=== PATIENT | male | born 1940 | race Caucasian/White ===

== ENCOUNTER 2018-10-27 15:48 | Inpatient (IN) | payer MEDICARE, OTHER, SELFPAY ==
[2018-10-27] VITALS (13 sets, daily range): BP systolic 127–177; BP diastolic 64–95; PULSE 56–67; RESP 15–26; TEMP 36.5–37; O2SAT 93–99; BMI 21.4; BMI 21.9
--- NOTE | 2018-10-27 15:58 | CT_ITS ---
STUDY: CTA OF THE BRAIN REASON FOR EXAM: Male, 78 years old. CVA, stroke alert RADIATION DOSAGE (If Supplied By Facility): CTDIvol = ( 22.91 ) mGy, DLP = ( 670.17 ) mGycm TECHNIQUE: CT angiography was performed with a multi-detector CT scanner. Data acquisition was obtained from the skull base through the vertex following intravenous administration of Isovue 370 100 IV. MIP images were reconstructed from the axial data set. Post-processing of the angiographic images was performed, with multiplanar reformation and 3D reconstruction. Individualized dose optimization techniques were used for this CT. COMPARISON: None. FINDINGS: Normal bilateral petrous carotid arteries. There is calcified plaque formation of the right cavernous carotid artery, without a cross-sectional luminal stenosis. There is calcified plaque formation of the left cavernous carotid artery, without a cross-sectional luminal stenosis. Normal right A1 segments of the anterior cerebral artery. Normal left A1 segments of the anterior cerebral artery. Normal intact anterior communicating artery (ACOM). Normal bilateral A2 segments of the anterior cerebral arteries. Normal right M1 and M2 segments of the middle cerebral arteries, with a normal M1 bifurcation. Normal left M1 and M2 segments of the middle cerebral arteries, with a normal M1 bifurcation. Normal right posterior communicating artery (PCOM). 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 Normal bilateral vertebral arteries. Normal basilar artery with a normal basilar bifurcation. The visualized bilateral superior cerebellar (SCA) arteries are normal. Normal bilateral P1, P2 and visualized P3 segments of the posterior cerebral arteries. There is no demonstrated aneurysm of the [place]. Mucosal thickening of the bilateral maxillary sinuses and ethmoid sinuses noted. There is fluid in the right mastoid air cells. IMPRESSION: 1. Normal [place] without a demonstrated aneurysm or hemodynamically significant stenosis. 2. Chronic maxillary sinusitis. Right mastoiditis. Electronically Signed: Guero Noe MD at 16:42 EDT , Service support , STUDY: CTA NECK WITH CONTRAST REASON FOR EXAM: Male, 78 years old. RADIATION DOSAGE (If Supplied By Facility): CTDIvol = ( 22.91 ) mGy, DLP = ( 670.17 ) mGycm TECHNIQUE: CT angiography with multi-detector data acquisition was performed from the aortic arch to the skull base following intravenous administration of Isovue 370 100 IV. MIP images were reconstructed from the axial data set. Post-processing of the angiographic images was performed, with multiplanar reformation and 3D reconstruction. Degree of stenosis (when present) measured utilizing NASCET criteria. Individualized dose optimization techniques were used for this CT. COMPARISON: None. FINDINGS: Enlarged, suspicious lymph node in the left paratracheal mediastinum is seen on image 1 measuring 2 cm in greatest dimension. There is also irregular thickening of the upper thoracic esophagus with wall thickness measuring up to 1.5 cm. Only the uppermost lungs are identified on this exam with mild degree of subpleural and centrilobular emphysematous changes. AORTIC ARCH: Minimal atherosclerosis at of the thoracic aorta. Minor atherosclerosis at the origins of the brachiocephalic, left common carotid and left subclavian arteries without hemodynamically significant stenosis. RIGHT CAROTID ARTERIES: Normal right common carotid artery (CCA). There is mild atherosclerotic plaque formation with minimal narrowing of the right carotid bulb. Normal origin of the right internal carotid (ICA) artery without a hemodynamically significant stenosis. Normal visualized cervical portion of the right internal carotid artery. Normal origin of the right external carotid artery (ECA). LEFT CAROTID ARTERIES: Normal left common carotid artery (CCA). There is mild atherosclerotic plaque formation with minimal narrowing of the left carotid bulb. Normal origin of the left internal carotid (ICA) artery without a hemodynamically significant stenosis. Normal visualized cervical portion of the left internal carotid artery. Normal origin of the left external carotid artery (ECA). VERTEBRAL ARTERIES: Normal bilateral vertebral arteries. Multilevel degenerative changes throughout the cervical spine with disc space narrowing, endplate sclerosis/spondylosis and facet arthropathy. No critical canal stenosis is seen. No destructive bony lesion is identified. CT/CTA Head W/WO Contrast IMPRESSION: 1. No carotid artery dissection or thrombus. 2. Mild bilateral carotid bulb atherosclerosis without hemodynamically significant stenosis. 3. SUSPICIOUS ADENOPATHY of the mediastinum, incompletely imaged. 4. ESOPHAGEAL WALL THICKENING SUSPICIOUS FOR NEOPLASM. 5. Degenerative changes of the cervical spine. Electronically Signed: Guero Noe MD at 16:46 EDT , Service support ,
--- NOTE | 2018-10-27 15:58 | CT_ITS ---
STUDY: CTA OF THE BRAIN REASON FOR EXAM: Male, 78 years old. CVA, stroke alert RADIATION DOSAGE (If Supplied By Facility): CTDIvol = ( 22.91 ) mGy, DLP = ( 670.17 ) mGycm TECHNIQUE: CT angiography was performed with a multi-detector CT scanner. Data acquisition was obtained from the skull base through the vertex following intravenous administration of Isovue 370 100 IV. MIP images were reconstructed from the axial data set. Post-processing of the angiographic images was performed, with multiplanar reformation and 3D reconstruction. Individualized dose optimization techniques were used for this CT. COMPARISON: None. FINDINGS: Normal bilateral petrous carotid arteries. There is calcified plaque formation of the right cavernous carotid artery, without a cross-sectional luminal stenosis. There is calcified plaque formation of the left cavernous carotid artery, without a cross-sectional luminal stenosis. Normal right A1 segments of the anterior cerebral artery. Normal left A1 segments of the anterior cerebral artery. Normal intact anterior communicating artery (ACOM). Normal bilateral A2 segments of the anterior cerebral arteries. Normal right M1 and M2 segments of the middle cerebral arteries, with a normal M1 bifurcation. Normal left M1 and M2 segments of the middle cerebral arteries, with a normal M1 bifurcation. Normal right posterior communicating artery (PCOM). 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 Normal bilateral vertebral arteries. Normal basilar artery with a normal basilar bifurcation. The visualized bilateral superior cerebellar (SCA) arteries are normal. Normal bilateral P1, P2 and visualized P3 segments of the posterior cerebral arteries. There is no demonstrated aneurysm of the [place]. Mucosal thickening of the bilateral maxillary sinuses and ethmoid sinuses noted. There is fluid in the right mastoid air cells. IMPRESSION: 1. Normal [place] without a demonstrated aneurysm or hemodynamically significant stenosis. 2. Chronic maxillary sinusitis. Right mastoiditis. Electronically Signed: Guero Noe MD at 16:42 EDT , Service support , STUDY: CTA NECK WITH CONTRAST REASON FOR EXAM: Male, 78 years old. RADIATION DOSAGE (If Supplied By Facility): CTDIvol = ( 22.91 ) mGy, DLP = ( 670.17 ) mGycm TECHNIQUE: CT angiography with multi-detector data acquisition was performed from the aortic arch to the skull base following intravenous administration of Isovue 370 100 IV. MIP images were reconstructed from the axial data set. Post-processing of the angiographic images was performed, with multiplanar reformation and 3D reconstruction. Degree of stenosis (when present) measured utilizing NASCET criteria. Individualized dose optimization techniques were used for this CT. COMPARISON: None. FINDINGS: Enlarged, suspicious lymph node in the left paratracheal mediastinum is seen on image 1 measuring 2 cm in greatest dimension. There is also irregular thickening of the upper thoracic esophagus with wall thickness measuring up to 1.5 cm. Only the uppermost lungs are identified on this exam with mild degree of subpleural and centrilobular emphysematous changes. AORTIC ARCH: Minimal atherosclerosis at of the thoracic aorta. Minor atherosclerosis at the origins of the brachiocephalic, left common carotid and left subclavian arteries without hemodynamically significant stenosis. RIGHT CAROTID ARTERIES: Normal right common carotid artery (CCA). There is mild atherosclerotic plaque formation with minimal narrowing of the right carotid bulb. Normal origin of the right internal carotid (ICA) artery without a hemodynamically significant stenosis. Normal visualized cervical portion of the right internal carotid artery. Normal origin of the right external carotid artery (ECA). LEFT CAROTID ARTERIES: Normal left common carotid artery (CCA). There is mild atherosclerotic plaque formation with minimal narrowing of the left carotid bulb. Normal origin of the left internal carotid (ICA) artery without a hemodynamically significant stenosis. Normal visualized cervical portion of the left internal carotid artery. Normal origin of the left external carotid artery (ECA). VERTEBRAL ARTERIES: Normal bilateral vertebral arteries. Multilevel degenerative changes throughout the cervical spine with disc space narrowing, endplate sclerosis/spondylosis and facet arthropathy. No critical canal stenosis is seen. No destructive bony lesion is identified. CT/CTA Neck W/WO Contrast IMPRESSION: 1. No carotid artery dissection or thrombus. 2. Mild bilateral carotid bulb atherosclerosis without hemodynamically significant stenosis. 3. SUSPICIOUS ADENOPATHY of the mediastinum, incompletely imaged. 4. ESOPHAGEAL WALL THICKENING SUSPICIOUS FOR NEOPLASM. 5. Degenerative changes of the cervical spine. Electronically Signed: Guero Noe MD at 16:46 EDT , Service support ,
--- NOTE | 2018-10-27 15:59 | EKG12_ITS ---
Test Reason : NEURO Blood Pressure : / mmHG Vent. Rate : 067 BPM Atrial Rate : 067 BPM P-R Int : 276 ms QRS Dur : 118 ms QT Int : 432 ms P-R-T Axes : 073 018 072 degrees QTc Int : 456 ms Sinus rhythm with 1st degree A-V block Cannot rule out Anteroseptal infarct , age undetermined Abnormal ECG Confirmed by ALLIE ALVARADO, NICHO ([id number]), non linear editor MOMO KUO ([id number]) on 10/29/2018 4:20:37 PM Referred By: Bakari Carbajal Confirmed By:NICHO KELLEY MD
--- NOTE | 2018-10-27 15:59 | CT_ITS ---
STUDY: CT BRAIN WITHOUT CONTRAST REASON FOR EXAM: Male, 78 years old. CVA RADIATION DOSAGE (If Supplied By Facility): CTDIvol = ( 44.99 ) mGy, DLP = ( 796.11 ) mGycm TECHNIQUE: Transaxial CT imaging of the brain was performed without administration of intravenous contrast material. Individualized dose optimization techniques were used for this CT. COMPARISON: None. FINDINGS: Normal soft tissue structures. Normal calvarium. There is mild cerebral atrophy with widening of the extra-axial spaces and ventricular dilatation. There are areas of decreased attenuation within the white matter tracts of the supratentorial brain, consistent with microvascular disease changes. Low density adjacent to the inferior margin of the left basal ganglia may represent a prominent perivascular space versus old lacunar infarction. Doubtful clinical significance. Normal brainstem. Normal cerebellum. There is no intracranial hemorrhage. There are no findings of an acute ischemic infarction. There is atherosclerosis of the carotid siphons. There is mucoperiosteal inflammatory disease of the paranasal sinuses consistent with mild chronic sinusitis. CT/Brain/Head without Contrast IMPRESSION: 1. No acute intracranial hemorrhage or mass effect. 2. Central parenchymal volume loss. White matter changes that are nonspecific but most commonly associated with chronic small vessel ischemic disease. 3. Chronic sinusitis. N.B. : The above information has been verbally conveyed by Guero Noe MD to Gray Lam MD, on 10/27/2018 16:31:44 (ET). Electronically Signed: Guero Noe MD at 16:33 EDT , Service support ,
--- NOTE | 2018-10-27 15:59 | RAD_ITS ---
STUDY: X-RAY CHEST REASON FOR EXAM: Male, 78 years old. Right-sided facial droop that started around 9:00 this morning TECHNIQUE: AP COMPARISON: None. FINDINGS: Rounded mass at the left lung base measures approximately 10 cm with lucency along the superior margin There is no demonstrated pleural abnormality. Normal size heart. Normal mediastinum and sophia. Normal visualized pulmonary arteries. Normal visualized aortic arch and descending thoracic aorta. Normal visualized thoracic spine. Mild degenerative changes of the right shoulder. There is no demonstrated abnormality of the visualized soft tissue structures of the upper abdomen. RAD/Chest 1 View IMPRESSION: Mass density at the left lung base with potential cavitation. Chest CT recommended. Electronically Signed: Guero Noe MD at 16:35 EDT , Service support ,
[2018-10-27 16:08] LABS: Absolute Lymphocyte Count 1.81 X10^3/ul (0.83-4.51); Absolute Neutrophil Count 7.9 X10^3/uL (2.0-7.7); Basophil# 0.01 X10^3/uL; Basophil% 0.1 % (0-1); Eosinophil# 0.05 X10^3/uL; Eosinophils% 0.5 % (0-5); Hematocrit 42.9 % (40-54); Hemoglobin 13.3 g/dl (13.0-16.5); Lymphocyte # 1.81 X10^3/ul (4.0); Lymphocyte % 17.1 % (19-41); Mean Corpuscular Hgb 26.5 pg (27.0-32.0); Mean Corpuscular Volume 85.5 fL (80-94); Mean Platelet Vol. 8.9 fl (6.2-12.0); Monocyte# 0.75 X10^3/uL; Monocyte% 7.1 % (0-10); Neutrophil # 7.94 X10^3/uL (2.7-7.7); Neutrophil % 74.9 % (47-70); Platelet Count 296 K/mm3 (150-450); RBC Distribution Width CV 15.1 % (11.6-14.6); RBC Distribution Width SD 46.8 fl (35.1-43.9); Red Blood Count 5.02 M/mm3 (4.6-6.2); White Blood Count 10.6 K/mm3 (4.4-11.0)
[2018-10-27 16:13] LABS: POSITIVE COUNT NO; POSITIVE DIFFERENTIAL NO; POSITIVE MORPHOLOGY NO
[2018-10-27 16:28] LABS: Anion Gap 6 (5-15); BUN 16 mg/dL (7-18); Calcium,Total 9.8 mg/dL (8.5-10.1); Chloride 99 mmol/L (98-107); Creatinine, Serum 0.84 mg/dL (0.70-1.30); EST Glomerular Filtration Rate 94 mL/min (>60); Est Glom Filt Rate - Afr Amer 114 mL/min (>60); Glucose 126 mg/dL (74-106); Potassium 4.2 mmol/L (3.5-5.1); Sodium Level 135 mmol/L (136-145)
[2018-10-27 16:31] LABS: International Normalized Ratio 1.2; Prothrombin Time (Protime)PT. 14.7 SECONDS (11.7-14.9)
[2018-10-27 16:32] LABS: Partial Thromboplast Time 30.7 Seconds (24.1-36.2)
[2018-10-27] MEDS: 0.9% Normal Saline 1,000 ML 100 ML IV (17:08)
--- NOTE | 2018-10-27 17:08 | ED.VISSUMM ---
- ER Visit Summary Date of Service: 10/27/18 Chief Complaint: [Facial droop] History of Present Illness: The patient is a 78 M [presents the emergency department with noted droop to his right eyelid around 9 AM per . Daughter came over and saw the patient noted that he had a facial droop and was brought to the emergency department for evaluation. states that she only noticed the facial droop about half an hour prior to coming into the emergency department. Patient denies headache. He denies any falls. Patient recently diagnosed with a left lung mass and scheduled to have a CAT scan of his chest. Patient's been having hemoptysis. He denies any fevers. Patient denies any visual changes or difficulty with speech. He thinks may be his right side is a little more weak than the left side. Patient has a history of coronary artery disease, diabetes, hypertension, high cholesterol, diverticulitis.] Physical Examination: [HEENT-PERRLA, EOMI. Cranial nerves II through XII grossly intact. TMs clear. Mucous membranes moist. No adenopathy. Patient has weakness to the right upper eyelid. Cardiovascular-regular rate and rhythm without murmur or ectopy Lungs-clear to auscultation, chest wall stable without crepitus or subcu emphysema Abdomen-normoactive bowel sounds, soft, nontender, no rebound or rigidity, no peritoneal signs. Neuro exam-patient has a right-sided facial droop. Patient is able to slightly wrinkled the right side of the forehead. No focal extremity weakness noted. Finger to nose and heel guerrero testing within normal limits. Negative Romberg. Negative pronator drift. Extremities-intact ?4, normal range of motion, normal pulses, atraumatic] Test Results: [EKG obtained arrival shows sinus rhythm with a ventricular rate 67 bpm with a first-degree AV block. CBC with differential showed a white count 10.6, hemoglobin 13, hematocrit 43, placed 296. Chemistries unremarkable. Troponin was less than 0.015. Chest x-ray showed a left lung mass. CT scan of the brain without contrast was unremarkable. CTA of the brain was normal. CTA of the neck showed questionable thickening of the esophagus cannot rule out neoplasm.] Emergency Department Course and Treatment: [Case was discussed with neurologist who asked that I start patient on prednisone valacyclovir as at this point is unclear patient is having truly stroke versus Castillo's palsy type phenomenon.] Treatment Plan: [Admit] Disposition: [Admit] Impression: [CVA Left lung mass] This note was generated with [employer] dictation software. It may contain incorrect words, spelling, and punctuation that were not noted in review of the chart prior to signing ED Disposition - Plan for ED Patient: Referrals: Donald Cohen MD [Primary Care Provider] -
--- NOTE | 2018-10-27 17:33 | ED.RN ---
NIH CANCELLED PER DR CAPUTO D/T DX OF [facility]
[2018-10-27] MEDS: Acyclovir 800 MG Tablet PO ×2 (17:37→22:31)
[2018-10-27] MEDS: predniSONE 20 MG Tablet 60 MG PO (17:37)
--- NOTE | 2018-10-27 17:47 | PCM.HP.STD ---
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 patient denies any focal weakness of extremities or sensory loss. Denies headache, change in the speech or dysphagia. Patient has chronic cough since 2017. In August he is having hemoptysis and his brought a plastic bag carrying blood-tinged sputum. He is recently diagnosed with a left lung mass. Patient is scheduled for CT scan of chest next week. Denies fever or chills. EKG showed normal sinus rhythm at 67 bpm with first-degree AV block, WV interval 276 ms. Chest x-ray shows left lung mass. CTA head and neck shows mild bilateral carotid bulb atherosclerosis without hemodynamically significant stenosis. CTA neck shows suspicious adenopathy of mediastinum along with esophageal wall thickening suspicious for neoplasm; incompletely imaged. CT brain no acute intracranial hemorrhage or mass-effect. Past Medical History Past Medical History (Chronic Problems): Chronic Problems Hypertension (Chronic) Borderline type 2 diabetes mellitus (Chronic) Dyslipidemia (Chronic) Left lung mass (Chronic) Recent diagnosis Coronary artery disease (Chronic) Allergies lorazepam [From Ativan] Allergy (Verified 10/27/18 15:54) Other CAUSED A HEART ATTACK Penicillins [PCN] Allergy (Verified 10/27/18 15:54) Unknown Home Medications: Ambulatory Orders Medication Instructions Recorded Aspirin 325 mg PO DAILY@0800 10/27/18 Atorvastatin Calcium 40 mg PO QHS 10/27/18 Flaxseed Oil [Flax Oil] 1,000 mg PO DAILY 10/27/18 Metoprolol Tartrate 50 mg PO BID 10/27/18 Sour Baez Extract [Tart Baez 1,000 mg PO QHS 10/27/18 Extract] Turmeric 400 mg PO DAILY 10/27/18 Vitamin B Complex [Balance B-50] 1 each PO DAILY 10/27/18 Smoking Status: Former smoker - *Family History Paternal History Items: Cancer - Patient does not know which cancer, COPD Review of Systems Constitutional: Reports: Weakness, Fatigue. Denies: Chills, Fever, Weight Change HEENT: Reports: Post Nasal Drip, Sinus Congestion. Denies: Head Aches, Sinus Drainage Cardiovascular: Denies: Chest Pain, Palpitations Respiratory: Reports: Cough, Hemoptysis, Shortness of breath upon exertion, Wheezing. Denies: Shortness of breath at rest, Sputum production Gastrointestinal: Denies: Abdominal Pain, Nausea, Vomiting Genitourinary: Denies: Dysuria, Frequency, Hesitancy Musculoskeletal: Denies: Joint Pain, Joint Tenderness Skin: Denies: Rash, Wounds Neurological: Reports: -. Denies: Focal weakness, Numbness, Tingling Psychiatric: Denies: Anxiety, Depression, Homicidal Ideations, Suicidal Ideations Hematologic/ Lymphatic: Denies: Easy Bruising, Easy Bleeding VTE Information - Inpt Only VTE Present on Admission: No VTE Mechan Device Prophylaxis: None VTE Pharm Prophylaxis ordered?: Yes Patient Problems: Active and Suspected Problems Castillo's palsy (Acute) - Physical Exam General: Alert, Oriented x3, Cooperative HEENT: Atraumatic, PERRLA, EOMI, Normocephalic Neck: Supple, No JVD, Negative Carotid Bruits Lungs: Diminished - Air entry severely diminished., Rhonchi Cardiovascular: Regular rate, Regular Rhythm, Normal S1, Normal S2, No murmurs Abdomen: Bowel Sounds Present, Soft, Non Tender, Non-Distended Extremities: No edema, Capillary Refill Less than 3 Seconds Skin: No rashes, No breakdown Musculoskeletal: No Tenderness to Palpation of Joints or Extremities, Arthritic Changes, Muscle Wasting Neurological: Deep Tendon Reflexes 2+/4 and Symmetrical, Motor Exam 5/5 strength throughout, - - Right-sided complete lower motor neuron facial nerve palsy. NIH stroke scale 3 Psych/Mental Status: Normal Affect, Appropriate Vital Signs Temp Pulse Resp BP Pulse Ox 98.6 F 66 15 141/66 H 98 10/27/18 15:51 10/27/18 17:26 10/27/18 17:26 10/27/18 17:26 10/27/18 17:26 Oxygen Flow Rate (L/min) 1 Oxygen Delivery Method Room Air Weight: 153 lb 10.595 oz Body Mass Index (BMI) 21.4 Laboratory Tests Past 24 Hrs 10/27/18 10/27/18 10/27/18 15:55 15:55 15:55 WBC 10.6 RBC 5.02 Hgb 13.3 Hct 42.9 MCV 85.5 MCH 26.5 L MCHC 31.0 L RDW 15.1 H RDW Differential 46.8 H Plt Count 296 MPV 8.9 Immature Gran % (Auto) 0.300 Neut % (Auto) 74.9 H Lymph % (Auto) 17.1 L [place] % (Auto) 7.1 Eos % (Auto) 0.5 Baso % (Auto) 0.1 Absolute Neuts (auto) 7.9 H Absolute Lymphs (auto) 1.81 Total Counted Not Reportable PT 14.7 INR 1.2 APTT 30.7 Sodium 135 L Potassium 4.2 Chloride 99 Carbon Dioxide 30.0 Anion Gap 6 BUN 16 Creatinine 0.84 Estim Creat Clear Calc 72.60 Est GFR (MDRD) Af Amer 114 Est GFR (MDRD) Non-Af 94 BUN/Creatinine Ratio 19.0 Glucose 126 H Calcium 9.8 Troponin I < 0.015 Assessment/Plan All Active Problems Castillo's palsy (Acute) The patient is a 78 year old M with multiple comorbidities as listed above was brought into ER after his noticed right eye drooping at about 9 AM and then right-sided facial droop about 1530 hrs. patient denies any focal weakness of extremities or sensory loss. Denies headache, change in the speech or dysphagia. Patient has chronic cough since 2017. In August he is having hemoptysis and his brought a plastic bag carrying blood-tinged sputum. He is recently diagnosed with a left lung mass. Patient is scheduled for CT scan of chest next week. Denies fever or chills. EKG showed normal sinus rhythm at 67 bpm with first-degree AV block, WV interval 276 ms. Chest x-ray shows left lung mass. CTA head and neck shows mild bilateral carotid bulb atherosclerosis without hemodynamically significant stenosis. CTA neck shows suspicious adenopathy of mediastinum along with esophageal wall thickening suspicious for neoplasm; incompletely imaged. CT brain no acute intracranial hemorrhage or mass-effect. 1. 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 Neurologist is being consulted. Started on acyclovir 800 mg 3 times daily and prednisone 60 mg daily for 3 days and then taper. MRI brain without contrast ordered. PT OT and speech and swallow evaluation ordered. 2. Chronic cough with hemoptysis mostly secondary to COPD/left lung mass: Patient is scheduled for CT scan of chest coming week. Patient has 40 pack years of smoking. Quit about 20 years ago 3. Borderline diabetes mellitus type 2: Glucose is 126. A1c tomorrow a.m. Patient is not on anti-hypoglycemic agent 4. Hypertension and dyslipidemia: Blood pressure is controlled. 5. Coronary artery status post 3 stents: Patient had last echo in 2004 and no major cardiac event as per patient and since then. Home medication reconciliation done. DVT prophylaxis: On Lovenox 40 mg subcu daily. Discontinue if platelet count drops less than 50,000 or hemoglobin less than 8 g% Laboratory Results 10/27/18 15:55: WBC 10.6, RBC 5.02, Hgb 13.3, Hct 42.9, MCV 85.5, MCH 26.5 L, MCHC 31.0 L, RDW 15.1 H, RDW Differential 46.8 H, Plt Count 296, MPV 8.9, Immature Gran % (Auto) 0.300, Neut % (Auto) 74.9 H, Lymph % (Auto) 17.1 L, [place] % (Auto) 7.1, Eos % (Auto) 0.5, Baso % (Auto) 0.1, Absolute Neuts (auto) 7.9 H, Absolute Lymphs (auto) 1.81, Total Counted Not Reportable 10/27/18 15:55: PT 14.7, INR 1.2, APTT 30.7 10/27/18 15:55: Sodium 135 L, Potassium 4.2, Chloride 99, Carbon Dioxide 30.0, Anion Gap 6, BUN 16, Creatinine 0.84, Estim Creat Clear Calc 72.60, Est GFR (MDRD) Af Amer 114, Est GFR (MDRD) Non-Af 94, BUN/Creatinine Ratio 19.0, Glucose 126 H, Calcium 9.8, Troponin I < 0.015 Clinical Impression(s) from Imaging Studies Head CTA 10/27/18 15:58 IMPRESSION: 1. No carotid artery dissection or thrombus. 2. Mild bilateral carotid bulb atherosclerosis without hemodynamically significant stenosis. 3. SUSPICIOUS ADENOPATHY of the mediastinum, incompletely imaged. 4. ESOPHAGEAL WALL THICKENING SUSPICIOUS FOR NEOPLASM. 5. Degenerative changes of the cervical spine. Neck CTA 10/27/18 15:58 IMPRESSION: 1. No carotid artery dissection or thrombus. 2. Mild bilateral carotid bulb atherosclerosis without hemodynamically significant stenosis. 3. SUSPICIOUS ADENOPATHY of the mediastinum, incompletely imaged. 4. ESOPHAGEAL WALL THICKENING SUSPICIOUS FOR NEOPLASM. 5. Degenerative changes of the cervical spine. Brain CT 10/27/18 15:59 IMPRESSION: IMPRESSION: 1. No acute intracranial hemorrhage or mass effect. 2. Central parenchymal volume loss. White matter changes that are nonspecific but most commonly associated with chronic small vessel ischemic disease. 3. Chronic sinusitis. Chest X-Ray 10/27/18 15:59 IMPRESSION: Mass density at the left lung base with potential cavitation. Chest CT recommended. Code Visit OBSV E&M: 28369 Initial observation care L3
[2018-10-27 19:10] LABS: Bedside Glucose 86 mg/dL (70-110)
[2018-10-27] MEDS: Enoxaparin 40 MG/0.4 ML Syringe SC (20:17)
[2018-10-27] MEDS: Atorvastatin Calcium 40 MG Tablet PO (22:31)
[2018-10-27] MEDS: Glucerna Shake 120 ML LIQUID PO (22:31)
[2018-10-27] MEDS: Metoprolol Tartrate 50 MG Tablet PO (22:31)
[2018-10-27 22:51] LABS: Bedside Glucose 182 mg/dL (70-110)
[2018-10-28] VITALS (14 sets, daily range): BP systolic 113–131; BP diastolic 63–68; PULSE 39–70; RESP 12–16; TEMP 36.4–36.9; O2SAT 94–95
[2018-10-28] MEDS: Acyclovir 800 MG Tablet PO ×3 (05:36→20:43)
[2018-10-28 06:56] LABS: Bedside Glucose 111 mg/dL (70-110)
[2018-10-28 07:41] LABS: Anion Gap 8 (5-15); BUN 11 mg/dL (7-18); BUN/Creat Ratio 18.3 RATIO (10-20); Calcium,Total 9.3 mg/dL (8.5-10.1); Chloride 104 mmol/L (98-107); EST Glomerular Filtration Rate 139 mL/min (>60); Est Glom Filt Rate - Afr Amer 168 mL/min (>60); Estimated Creatinine Clearance 57.31 ml/min; Glucose 125 mg/dL (74-106); Potassium 4.1 mmol/L (3.5-5.1); Sodium Level 136 mmol/L (136-145)
[2018-10-28] MEDS: Vitamin B Comp W-C Capsule 1 CAP PO (08:00)
[2018-10-28] MEDS: Enoxaparin 40 MG/0.4 ML Syringe SC (08:00)
[2018-10-28] MEDS: predniSONE 20 MG Tablet 60 MG PO (08:00)
[2018-10-28] MEDS: Aspirin 325 MG Tablet PO (08:00)
[2018-10-28] MEDS: Glucerna Shake 120 ML LIQUID PO ×3 (08:07→17:05)
--- NOTE | 2018-10-28 09:00 | MRI_ITS ---
STUDY: MRI BRAIN WITH AND WITHOUT CONTRAST REASON FOR EXAM: Male, 78 years old. Facial palsy, right facial droop. TECHNIQUE: Standardized multiplanar fat and water weighted pulse sequences were obtained. Dotarem 15 IV was administered for the contrast portion of the examination. COMPARISON: None. FINDINGS: There is moderate cerebral atrophy with widening of the extra-axial spaces and ventricular dilatation. There are a limited number of small white matter hyperintensities, distributed throughout the deep white matter tracts of the cerebral hemispheres, consistent with mild chronic white matter ischemic changes. There is no evidence for recent intracranial ischemia or other cause of cytotoxic edema on diffusion weighted imaging (DWI). Within the right skull base is a diffusion restriction lesion within the right skull base which is partially viewed. Normal bilateral basal ganglia. Normal thalami. There is no extra-axial fluid accumulation. Normal flow voids within the major intracranial circulation suggesting patency by spin echo criteria. Normal venous enhancement. There is no enhancing intra-axial or extra-axial abnormality. Normal sella turcica, pituitary gland, infundibular stalk, optic chiasm and hypothalamus. Normal tectal plate and pineal gland. Normal midbrain, shanice and medulla. Normal cerebellum. Normal basal cisterns. There is demonstrated right mastoid effusion. Within the soft tissues of the right skull base is a lobulated soft tissue lesion inferior to the inferior occipital bone on the right with isointense T1 and T2 signal intensity with noted increased DWI signal consistent with high cellularity. No evidence of definitive osseous destruction. Postcontrast demonstrates mild homogeneous enhancement with apparent infiltration of the skull base musculature as seen on coronal series 11 image 10 extending to the C1-2 attachments. There is question of skull base still mastoid foramen extension on the right also seen on series 11 image 10. Normal bilateral internal auditory canals. No demonstrated orbital abnormality, within the constraints of a routine brain study. Normal visualized paranasal sinuses. Normal calvarium and skull base. Normal visualized soft tissue structures. Normal visualized upper cervical spine. MRI/Brain W/WO Contrast IMPRESSION: 1. Senescent changes with no evidence of acute intracranial bleed, mass or ischemia. 2. Right inferior skull base appeared muscular infiltrating lesion worrisome for underlying sarcoma with metastatic disease not excluded. There is likely infiltration of the right facial nerve and stylomastoid foramen infiltration. Recommend dedicated skull base imaging with thin slice postcontrast SPGR T1 with diffusion imaging for further assessment and analysis. Recommend ENT consultation for definitive tissue assessment. Electronically Signed: Kingsley Penn DO at 16:00 EDT , Service support ,
[2018-10-28] MEDS: Metoprolol Tartrate 50 MG Tablet PO ×2 (10:12→20:43)
[2018-10-28 11:07] LABS: Hemoglobin A1c 6.1 % (4.2-6.3)
--- NOTE | 2018-10-28 11:33 | CON.PCM_ITS ---
Problem List (1) Castillo's palsy Status: Acute Reason for Consult Date of Consultation: 10/28/18 Reason for Consultation: Castillo's palsy History of Present Illness: The patient is a 78 year old M PMH HTN, HLD, DM (per patient he stopped taking the medication as his diabetes was getting under control), CAD S/P stents, H/O hemoptysis for the past 1 month or so, Ex-Tobacco abuse, Ex-ETOH abuse admitted with right facial palsy. Per patient he was with his yesterday 10/27/2018 when at around 9 AM he noticed having right facial droop. History is obtained from the patient, daughter at bedside as well as medical records. He denies any associated focal motor weakness, sensory loss, headache, dizziness, visual disturbances or double vision, speech disturbances. Per patient he used to smoke in the past, was a heavy alcohol drinker for many years in the past, at present drinks about 1-2 beers every day. Chest x-ray done on this admission reported to show mass density at the left lung base with potential cavitation. CT head done on admission did not show anything acute, CTA head/neck reported no hemodynamically significant stenosis occlusion or aneurysm but reported to show suspicious adenopathy of the mediastinum and esophageal wall thickening suspicious for neoplasm. At present patient continues to have right facial droop has difficulty in closing the right eye. Per patient he is on aspirin and Lipitor at baseline. Per patient he lives with his , does drive, does not use any cane or walker to ambulate, denies any frequent falls and does not need any assistance for his ADLs. [] Past Medical History Past Medical History (Chronic Problems): Chronic Problems Hypertension (Chronic) Borderline type 2 diabetes mellitus (Chronic) Dyslipidemia (Chronic) Left lung mass (Chronic) Recent diagnosis Coronary artery disease (Chronic) Allergies lorazepam [From Ativan] Allergy (Verified 10/27/18 15:54) Other CAUSED A HEART ATTACK Penicillins [PCN] Allergy (Verified 10/27/18 15:54) Unknown Home Medications: Ambulatory Orders Medication Instructions Recorded Aspirin 325 mg PO DAILY@0800 10/27/18 Atorvastatin Calcium 40 mg PO QHS 10/27/18 Flaxseed Oil [Flax Oil] 1,000 mg PO DAILY 10/27/18 Metoprolol Tartrate 50 mg PO BID 10/27/18 Sour Baez Extract [Tart Baez 1,000 mg PO QHS 10/27/18 Extract] Turmeric 400 mg PO DAILY 10/27/18 Vitamin B Complex [Balance B-50] 1 each PO DAILY 10/27/18 Lives: Spouse/ Significant Other Smoking Status: Former smoker Tobacco Use: - - Ex-Smoker Alcohol: Heavy - in the past, at present 1-2 beers - *Family History Paternal History Items: Cancer - Patient does not know which cancer, COPD Maternal History Items: No pertinent history Review of Systems Constitutional: Reports: - - Complete ROS negative except as documented in HPI Patient Problems: Active and Suspected Problems Castillo's palsy (Acute) Esophageal mass (Acute) - Physical Exam General: Alert HEENT: Normocephalic Neck: Supple Lungs: Normal air movement, - - decreased left lower lobe Cardiovascular: Normal S1, Normal S2 Abdomen: Bowel Sounds Present Extremities: No cyanosis Neurological: - - consious, alert, AoAx3, CN-right LMN facial palsy, rest normal, weak right orbicularis oculi, orbicularis jose e, and buccinator, power 5/5 both UE/LE, no sensory loss, no cerebellar signs, Reflexes + B/L B/S/T/K/A, plantars B/L flexor, gait deferred, no NR Psych/Mental Status: Normal Affect Vital Signs Temp Pulse Resp BP Pulse Ox 98.0 F 54 L 14 131/65 H 94 10/28/18 09:15 10/28/18 11:00 10/28/18 09:15 10/28/18 09:15 10/28/18 09:15 Oxygen Flow Rate (L/min) 1 Oxygen Delivery Method Room Air Weight: 65.5 kg Body Mass Index (BMI) 21.9 Intake and Output for Last 24 Hours 10/26/18 10/27/18 10/28/18 23:59 23:59 23:59 Intake Total 473 / 473 448 / 448 Output Total 600 / 600 575 / 575 Balance -127 / -127 -127 / -127 Laboratory Tests Past 24 Hrs 10/27/18 10/27/18 10/27/18 15:55 15:55 15:55 WBC 10.6 RBC 5.02 Hgb 13.3 Hct 42.9 MCV 85.5 MCH 26.5 L MCHC 31.0 L RDW 15.1 H RDW Differential 46.8 H Plt Count 296 MPV 8.9 Immature Gran % (Auto) 0.300 Neut % (Auto) 74.9 H Lymph % (Auto) 17.1 L [place] % (Auto) 7.1 Eos % (Auto) 0.5 Baso % (Auto) 0.1 Absolute Neuts (auto) 7.9 H Absolute Lymphs (auto) 1.81 Total Counted Not Reportable PT 14.7 INR 1.2 APTT 30.7 Sodium 135 L Potassium 4.2 Chloride 99 Carbon Dioxide 30.0 Anion Gap 6 BUN 16 Creatinine 0.84 Estim Creat Clear Calc 72.60 Est GFR (MDRD) Af Amer 114 Est GFR (MDRD) Non-Af 94 BUN/Creatinine Ratio 19.0 Glucose 126 H Hemoglobin A1c Calcium 9.8 Troponin I < 0.015 C-React Prot Ext Range 10/27/18 10/28/18 10/28/18 15:55 05:55 05:55 WBC RBC Hgb Hct MCV MCH MCHC RDW RDW Differential Plt Count MPV Immature Gran % (Auto) Neut % (Auto) Lymph % (Auto) [place] % (Auto) Eos % (Auto) Baso % (Auto) Absolute Neuts (auto) Absolute Lymphs (auto) Total Counted PT INR APTT Sodium 136 Potassium 4.1 Chloride 104 Carbon Dioxide 24.0 Anion Gap 8 BUN 11 Creatinine 0.60 L Estim Creat Clear Calc 57.31 Est GFR (MDRD) Af Amer 168 Est GFR (MDRD) Non-Af 139 BUN/Creatinine Ratio 18.3 Glucose 125 H Hemoglobin A1c 6.1 Calcium 9.3 Troponin I C-React Prot Ext Range 116.00 H POC Glucose 10/28/18 10/27/18 10/27/18 06:47 22:23 19:06 POC Glucose 111 H 182 H 86 Assessment/Plan All Active Problems Castillo's palsy (Acute) Esophageal mass (Acute) The patient is a 78 year old M PMH HTN, HLD, DM (per patient he stopped taking the medication as his diabetes was getting under control), CAD S/P stents, H/O hemoptysis for the past 1 month or so, Ex-Tobacco abuse, Ex-ETOH abuse admitted with right facial palsy. Per patient he was with his yesterday 10/27/2018 when at around 9 AM he noticed having right facial droop. History is obtained from the patient, daughter at bedside as well as medical records. He denies any associated focal motor weakness, sensory loss, headache, dizziness, visual disturbances or double vision, speech disturbances. Per patient he used to smoke in the past, was a heavy alcohol drinker for many years in the past, at present drinks about 1-2 beers every day. Chest x-ray done on this admission reported to show mass density at the left lung base with potential cavitation. CT head done on admission did not show anything acute, CTA head/neck reported no hemodynamically significant stenosis occlusion or aneurysm but reported to show suspicious adenopathy of the mediastinum and esophageal wall thickening susp icious for neoplasm. At present patient continues to have right facial droop has difficulty in closing the right eye. Per patient he is on aspirin and Lipitor at baseline. Per patient he lives with his , does drive, does not use any cane or walker to ambulate, denies any frequent falls and does not need any assistance for his ADLs. Impression Likely right-sided Castillo's palsy Plan -Check MRI brain with and without contrast -Check Lyme's antibody, KATHIE level, HIV. -CT head and CTA head/neck did not reported to show any hemodynamically significant stenosis, occlusion or aneurysms but reported to show suspicious adenopathy of the mediastinum and esophageal wall thickening suspicious for neoplasm. Further malignancy workup per hospitalist team and oncology. -Consult oncology -Valacyclovir 1 g p.o. 3 times daily for 7 days -Prednisone 60 mg p.o. once daily for 2 days, then decrease to 50 mg p.o. once daily for 2 days then decrease to 40 mg p.o. once daily for 2 days then decrease to 20 mg p.o. once daily for 2 days then decrease to 10 mg p.o. once daily for 2 days, then decrease to 5 mg p.o. once daily for 2 days and then stop -Right eye patch as needed especially at night to prevent corneal damage and infection. -Artificial tears right eye every 1-2 hours as needed. -Ophthalmology consult as outpatient. -On ASA and Lipitor at baseline. -GI/DVT prophylaxis. -PT/OT -Fall precautions -Further medical management per hospitalist team and wound -Follow-up with neurology as outpatient in 6 weeks -Please call with questions if any -Thank you for allowing us to participate in patient's care and management. Code Visit Inpatient E&M: 29807 Init Hosp L3
[2018-10-28 12:05] LABS: Lyme Ab Screen Interpretation REF LAB
--- NOTE | 2018-10-28 12:59 | PCM.PN.HOSP ---
Patient Problems: Active and Suspected Problems Castillo's palsy (Acute) Subjective: Patient was seen and examined. He denied any weakness in any part of his body or tingling or numbness. No acute events overnight. His daughter was initially at the bedside, came later. Updated on results of the MRI. Agreed to ENT, oncology and pulmonology consult Vitals/I&O's: Vital Signs Temp Pulse Resp BP Pulse Ox 98.0 F 54 L 14 131/65 H 94 10/28/18 09:15 10/28/18 11:00 10/28/18 09:15 10/28/18 09:15 10/28/18 09:15 Oxygen Flow Rate (L/min) 1 Oxygen Delivery Method Room Air Weight: 65.5 kg Body Mass Index (BMI) 21.9 Intake and Output for Last 24 Hours 10/26/18 10/27/18 10/28/18 23:59 23:59 23:59 Intake Total 473 / 473 448 / 448 Output Total 600 / 600 575 / 575 Balance -127 / -127 -127 / -127 General: Alert, Oriented x3, Cooperative, No apparent distress HEENT: Atraumatic, PERRLA, EOMI, Normocephalic Oral: Moist Mucosa Neck: Supple Lungs: Clear to auscultation, Normal air movement Cardiovascular: Regular rate, Regular Rhythm, Normal S1, Normal S2, No murmurs Abdomen: Bowel Sounds Present, Soft, Non Tender, Non-Distended, No Hepato-splenomegaly Extremities: No edema Skin: No rashes, No breakdown Musculoskeletal: No Tenderness to Palpation of Joints or Extremities Lymphatic: No Cervical, Supraclavicular, or Inguinal Adenopathy Neurological: Facial Droop - Right facial droop, LMN Psych/Mental Status: Normal Affect, Appropriate Laboratory Results 10/27/18 15:55: WBC 10.6, RBC 5.02, Hgb 13.3, Hct 42.9, MCV 85.5, MCH 26.5 L, MCHC 31.0 L, RDW 15.1 H, RDW Differential 46.8 H, Plt Count 296, MPV 8.9, Immature Gran % (Auto) 0.300, Neut % (Auto) 74.9 H, Lymph % (Auto) 17.1 L, [place] % (Auto) 7.1, Eos % (Auto) 0.5, Baso % (Auto) 0.1, Absolute Neuts (auto) 7.9 H, Absolute Lymphs (auto) 1.81, Total Counted Not Reportable 10/27/18 15:55: PT 14.7, INR 1.2, APTT 30.7 10/27/18 15:55: Sodium 135 L, Potassium 4.2, Chloride 99, Carbon Dioxide 30.0, Anion Gap 6, BUN 16, Creatinine 0.84, Estim Creat Clear Calc 72.60, Est GFR (MDRD) Af Amer 114, Est GFR (MDRD) Non-Af 94, BUN/Creatinine Ratio 19.0, Glucose 126 H, Calcium 9.8, Troponin I < 0.015 10/27/18 15:55: C-React Prot Ext Range 116.00 H 10/27/18 19:06: POC Glucose 86 10/27/18 22:23: POC Glucose 182 H 10/28/18 05:55: Sodium 136, Potassium 4.1, Chloride 104, Carbon Dioxide 24.0, Anion Gap 8, BUN 11, Creatinine 0.60 L, Estim Creat Clear Calc 57.31, Est GFR (MDRD) Af Amer 168, Est GFR (MDRD) Non-Af 139, BUN/Creatinine Ratio 18.3, Glucose 125 H, Calcium 9.3 10/28/18 05:55: Hemoglobin A1c 6.1 10/28/18 06:47: POC Glucose 111 H 10/28/18 : Angiotensin Convert Enz Pending, Lyme Total Antibody Pending, Lyme Disease Interpret Pending 10/28/18 : HIV 1&2 Antibody Pending Current Medications Acyclovir (Zovirax) 800 mg PO TID [facility] Last Admin: 10/28/18 05:36 Dose: 800 mg Al Hydroxide/Mg Hydroxide (Mylanta Ii) 30 ml PO Q6H PRN PRN PRN Reason: Gastric burning Aspirin (Aspirin) 325 mg PO DAILY@0800 [facility] Last Admin: 10/28/18 08:00 Dose: 325 mg Atorvastatin Calcium (Lipitor) 40 mg PO QHS [facility] Last Admin: 10/27/18 22:31 Dose: 40 mg Enoxaparin Sodium (Lovenox) 40 mg SC DAILY@1000 [facility] Last Admin: 10/28/18 08:00 Dose: 40 mg Metoprolol Tartrate (Lopressor (Beta Geno)) 50 mg PO BID [facility] Last Admin: 10/28/18 10:12 Dose: 50 mg Multivitamins (Allbee W/C Caplet, Thera B Comp/C) [facility] Admin: 10/28/18 08:00 Dose: 1 capsule Nutritional Formula (Lactose Free) (Glucerna Shake) 120 ml PO 4X/DAY [facility] Last Admin: 10/28/18 08:07 Dose: 120 ml Ondansetron HCl (Zofran) 4 mg IV Q8H PRN PRN PRN Reason: NAUSEA Prednisone () [facility] Last Admin: 10/28/18 08:00 Dose: 60 mg Medical Necessity - Tobacco Use Smoking Status: Former smoker Tobacco Use: - - Ex-Smoker Assessment/Plan All Active Problems Castillo's palsy (Acute) 78-year-old male with multiple comorbidities admitted with right sided facial droop. 1. Right-sided facial droop secondary to right facial nerve infiltration at the stylomastoid foramen Likely secondary to malignancy, ENT consulted Acute stroke ruled out from negative MRI brain Discussed with neurology; will continue on prednisone taper, on acyclovir, Will wait for ENT recommendation and possibly discontinue acyclovir if no further events 2. Left lung mass, with hemoptysis, known to the patient, workup in the outpatient is pending, agreed to pulmonology and oncology consult, CT scan of the chest with contrast in a.m., patient likely would need biopsy of the lung mass 3. Prediabetes, HbA1c 6.1, blood sugars are controlled, will discontinue Accu-Cheks 4. Hypertension, on metoprolol 5. CAD status post stents, on aspirin, beta-geno, statin 6. Hyperlipidemia, statin 7. DVT prophylaxis with Lovenox subcu Code Visit Inpatient E&M: 38262 Subs Hosp L2
[2018-10-28 16:56] LABS: Bedside Glucose 141 mg/dL (70-110)
[2018-10-28] MEDS: Atorvastatin Calcium 40 MG Tablet PO (20:42)
--- NOTE | 2018-10-28 20:44 | NURSING ---
Pt requesting meds at this time to try to get some sleep.
[2018-10-29] VITALS (13 sets, daily range): BP systolic 110–161; BP diastolic 63–79; PULSE 51–77; RESP 16–20; TEMP 36.4–37; O2SAT 90–99; BMI 21.9
[2018-10-29] MEDS: Acyclovir 800 MG Tablet PO (05:13)
--- NOTE | 2018-10-29 05:55 | CT_ITS ---
HISTORY: COUGH WITH HEMOPTYSIS,LT LOWR LUNG MASS,MEDIASTINAL ADENOPATHYHX:HTN,HLD,CAD,FORMER SMOKER TECHNIQUE: Helically acquired images were obtained of the chest following IV contrast. A radiation dose optimization technique was used for this scan. IV Contrast dosage and agent: 100 cc [id number]-300 contrast COMPARISON: Chest x-ray 10/27/2018 FINDINGS: The left lower lobe shows a relatively well-circumscribed oval mass which measures approximately 10.4 x 10.3 x 6.5 cm. The mass centrally is partly cavitated. Left lower lobe medially shows a second lesion which is smaller and pleural-based measuring 1.4 x 1.6 x 1 cm. Left lower lobe shows retained secretions/debris within the feeding bronchus. Localized pleural thickening overlying the axillary right fifth rib. Abnormal mural thickening of the upper thoracic esophagus in keeping with tumor extending over an approximate 5 cm length. Adjacent right paraesophageal 1.4 x 1.6 x 1 cm enlarged lymph node. Additional bulky lymph node enlargement involving the AP window, precarinal, and subcarinal regions. Subcarinal lymph nodes measure up to 2.2 cm in the short axis. Thoracic aorta is normal in caliber. No pericardial effusion. Left hepatic lobe shows several oval lesions with peripheral enhancement compatible with metastases with the larger lesion measuring approximately 3.4 x 2.[address]/Chest WITH Contrast IMPRESSION: 1. 5 cm in length suspicious mural lesion of the upper thoracic esophagus. 2. Several left lower lobe lesions measuring approximately 10.4 cm and 1.6 cm respectively, compatible with malignant tumor. 3. 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 4. Probable hepatic metastases. 5. Cholelithiasis. Individualized dose optimization techniques were used for this CT. at 0724 Reported and signed by: Rod Argueta MD Electronically Signed: Rod Argueta, at 7:23 EDT Tel , Service support ,
[2018-10-29 07:36] LABS: Bedside Glucose 78 mg/dL (70-110)
--- NOTE | 2018-10-29 08:02 | PCM.PN.HOSP ---
Patient Problems: Active and Suspected Problems Castillo's palsy (Acute) Esophageal mass (Acute) Subjective: Patient was seen and examined. Denied any new complaints. Still having blood tinged sputum, although color of sputum appears dull than previous. Denied any chest pain or dizziness or shortness of breath. Right facial droop appears improved. Objective: Physical exam: General: Alert, Oriented x3, Cooperative, No apparent distress, comfortable, on room air HEENT: Atraumatic, PERRLA, EOMI, Normocephalic Oral: Moist Mucosa Neck: Supple Lungs: Clear to auscultation, Normal air movement Cardiovascular: Regular rate, Regular Rhythm, Normal S1, Normal S2, No murmurs Abdomen: Bowel Sounds Present, Soft, Non Tender, Non-Distended, No Hepato-splenomegaly Extremities: No edema Skin: No rashes, No breakdown Musculoskeletal: No Tenderness to Palpation of Joints or Extremities Lymphatic: No Cervical, Supraclavicular, or Inguinal Adenopathy Neurological: Facial Droop - Right facial droop, LMN, improved Psych/Mental Status: Normal Affect, Appropriate Vitals/I&O's: Vital Signs Temp Pulse Resp BP Pulse Ox 97.5 F L 53 L 16 138/63 H 99 10/29/18 03:10 10/29/18 07:10 10/29/18 03:10 10/29/18 03:10 10/29/18 03:10 Oxygen Flow Rate (L/min) 1 Oxygen Delivery Method Room Air Weight: 65.5 kg Body Mass Index (BMI) 21.9 Intake and Output for Last 24 Hours 10/27/18 10/28/18 10/29/18 23:59 23:59 23:59 Intake Total 473 / 473 1478 / 1478 100 / 100 Output Total 600 / 600 1135 / 1135 825 / 825 Balance -127 / -127 343 / 343 -725 / -725 Laboratory Results 10/28/18 05:55: Hemoglobin A1c 6.1 10/28/18 16:48: POC Glucose 141 H 10/28/18 : Angiotensin Convert Enz Pending, Lyme Total Antibody Pending, Lyme Disease Interpret Pending 10/28/18 : HIV 1&2 Antibody Pending 10/29/18 06:48: POC Glucose 78 Current Medications Acyclovir (Zovirax) 800 mg PO TID [facility] Last Admin: 10/29/18 05:13 Dose: 800 mg Al Hydroxide/Mg Hydroxide (Mylanta Ii) 30 ml PO Q6H PRN PRN PRN Reason: Gastric burning Aspirin (Aspirin) 325 mg PO DAILY@0800 [facility] Last Admin: 10/28/18 08:00 Dose: 325 mg Atorvastatin Calcium (Lipitor) 40 mg PO QHS [facility] Last Admin: 10/28/18 20:42 Dose: 40 mg Metoprolol Tartrate (Lopressor (Beta Geno)) 50 mg PO BID [facility] Last Admin: 10/28/18 20:43 Dose: 50 mg Multivitamins (Allbee W/C Caplet, Thera B Comp/C) [facility] Last Admin: 10/28/18 08:00 Dose: 1 capsule Nutritional Formula (Lactose Free) (Glucerna Shake) 120 ml PO 4X/DAY [facility] Last Admin: 10/28/18 20:43 Dose: Not Given Ondansetron HCl (Zofran) 4 mg IV Q8H PRN PRN PRN Reason: NAUSEA Prednisone () [facility] Last Admin: 10/28/18 08:00 Dose: 60 mg Medical Necessity - Tobacco Use Smoking Status: Former smoker Tobacco Use: - - Ex-Smoker Assessment/Plan All Active Problems Castillo's palsy (Acute) Esophageal mass (Acute) 78-year-old male with multiple comorbidities, history of nicotine use disorder, [id number], recent weight loss, newly diagnosed lung mass admitted with right sided facial droop. 1. Right-sided facial droop secondary to right facial nerve infiltration at the stylomastoid foramen Etiology is probable upper thoracic esophageal CA, seen on CT of the chest this morning. Acute stroke ruled out from negative MRI brain Patient was on prednisone and acyclovir Appreciate ENT consult, will discontinue acyclovir, continue prednisone taper 2. 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 Hemoptysis secondary to left lung mass, off anticoagulants, on aspirin for history of CAD, Hemoptysis appears to be improving, will continue to monitor. 4. Prediabetes, HbA1c 6.1, blood sugars are controlled, will discontinue Accu-Cheks 5. Hypertension, controlled, on metoprolol 6. CAD status post stents, on aspirin, beta-geno, statin 7. Hyperlipidemia, statin 8. DVT prophylaxis - SCDs Code Visit Inpatient E&M: 79099 Subs Hosp L3
--- NOTE | 2018-10-29 08:06 | PCM.CONS.GEN ---
Problem List (1) Castillo's palsy Status: Acute (2) Left lung mass Status: Chronic Comment: Recent diagnosis (3) Esophageal mass Status: Acute Reason for Consult Date of Consultation: 10/29/18 Reason for Consultation: facial paralysis, skull base mass History of Present Illness: The patient is a 78 year old M who presented to the emergency department for evaluation. He reports that over the last 6 months he suffered approximate 40 pound weight loss with some mild anorexia. He denies significant dysphagia and has been tolerating his usual diet although this is reduced in quantity. Over the last 3 weeks or so he is developed some right-sided neck pain which progressed to right-sided facial weakness prompting his presentation for evaluation. He additionally reports some bloody hemoptysis over the last 3 weeks. A stroke workup with imaging was undertaken and he was found to have a lesion of the right skull base involving the stylomastoid foramen. Additionally imaging showed a large cavitary lesion of the right lower lobe of the lung, mediastinal lymphadenopathy thickening of the upper esophagus with suspicion for tumor mass and multiple solid masses within the liver. He denies any fevers chills or night sweats. He reports that he is usually in his usual state of health until the last several weeks when he started to feel ill with less energy and the onset of his right cervical pain. He reports a history of smoking but quit approximately 14 years ago. He denies significant acid reflux disease. He denies any history of caustic ingestion or esophageal injury. He has some weakness of the right side of the face. His review of systems is otherwise negative on 10 systems review. [] Past Medical History Past Medical History (Chronic Problems): Chronic Problems Hypertension (Chronic) Borderline type 2 diabetes mellitus (Chronic) Dyslipidemia (Chronic) Left lung mass (Chronic) Recent diagnosis Coronary artery disease (Chronic) Allergies lorazepam [From Ativan] Allergy (Verified 10/27/18 15:54) Other CAUSED A HEART ATTACK Penicillins [PCN] Allergy (Verified 10/27/18 15:54) Unknown Home Medications: Ambulatory Orders Medication Instructions Recorded Aspirin 325 mg PO DAILY@0800 10/27/18 Atorvastatin Calcium 40 mg PO QHS 10/27/18 Flaxseed Oil [Flax Oil] 1,000 mg PO DAILY 10/27/18 Metoprolol Tartrate 50 mg PO BID 10/27/18 Sour Baez Extract [Tart Baez 1,000 mg PO QHS 10/27/18 Extract] Turmeric 400 mg PO DAILY 10/27/18 Vitamin B Complex [Balance B-50] 1 each PO DAILY 10/27/18 Lives: Spouse/ Significant Other Smoking Status: Former smoker Tobacco Use: - - Ex-Smoker Alcohol: Heavy - in the past, at present 1-2 beers - *Family History Paternal History Items: Cancer - Patient does not know which cancer, COPD Review of Systems Constitutional: Reports: Anorexia, Malaise, Weight Change. Denies: Chills, Fever, Night Sweats Eyes: Denies: Blurred vision, Cataracts, Conjunctivae Inflammation, Double vision, Eyelid Inflammation HEENT: Denies: Difficulty Hearing, Difficulty Swallowing, Ear Pain, Eye Pain, Nasal bleeding, Sore Throat Cardiovascular: Reports: Heaviness. Denies: Chest Pain, Chest Tightness Respiratory: Reports: Hemoptysis Gastrointestinal: Denies: Abdominal Pain, Constipation, Diarrhea Genitourinary: Denies: Dysuria, Frequency, Hematuria Musculoskeletal: Reports: Neck Pain. Denies: Arm Pain, Back Pain Skin: Denies: Dryness, Jaundice, Lesions Neurological: Denies: Balance problems, Difficulty swallowing Psychiatric: Denies: Anxiety, Depression Hematologic/ Lymphatic: Denies: Adenopathy, Anemia Patient Problems: Active and Suspected Problems Castillo's palsy (Acute) Esophageal mass (Acute) Subjective: Patient report he is feeling well without significant pain although he has had some pain recently of the right side of the neck. He continues to have some right facial weakness. He has a mccabe reports that he is feeling well. He reports that he has been informed that he has been advised that he has a mass in his lung. Objective: The patient is well but thin in appearance. Voicing is normal with mild oral dryness. There is noted to be a grade 2 out of 6 right facial palsy. Palpation of the neck reveals no palpable mass particularly with attention to the right skull base at the site of the reported lesion. - Physical Exam General: Alert, Oriented x3, Cooperative, No apparent distress HEENT: Atraumatic, PERRLA, EOMI Oral: Dry Mucosa Neck: Supple, No Nodes Lungs: No rhonchi, No wheeze Cardiovascular: Regular rate, Regular Rhythm Extremities: No edema Skin: No rashes Lymphatic: - - No palpable cervical adenopathy Neurological: Facial Droop - Right side 2 out of 6, - - Intact laryngeal elevation, intact tongue movement, intact palatal elevation, intact shoulder shrug, intact ocular movements Psych/Mental Status: Alert and oriented to time, place, person, mood and affect Vital Signs Temp Pulse Resp BP Pulse Ox 97.5 F L 53 L 16 138/63 H 99 10/29/18 03:10 10/29/18 07:10 10/29/18 03:10 10/29/18 03:10 10/29/18 03:10 Oxygen Flow Rate (L/min) 1 Oxygen Delivery Method Room Air Weight: 65.5 kg Body Mass Index (BMI) 21.9 Intake and Output for Last 24 Hours 10/27/18 10/28/18 10/29/18 23:59 23:59 23:59 Intake Total 473 / 473 1478 / 1478 100 / 100 Output Total 600 / 600 1135 / 1135 825 / 825 Balance -127 / -127 343 / 343 -725 / -725 Laboratory Tests Past 24 Hrs 10/28/18 10/28/18 10/28/18 05:55 Unknown Unknown Hemoglobin A1c 6.1 Angiotensin Convert Enz Pending Lyme Total Antibody Pending Lyme Disease Interpret Pending HIV 1&2 Antibody Pending POC Glucose 10/29/18 10/28/18 06:48 16:48 POC Glucose 78 141 H Assessment/Plan All Active Problems Castillo's palsy (Acute) Esophageal mass (Acute) Mr. Rojas is a 78-year-old male former smoker with new onset of right facial weakness. I discussed with his admitting physician who reports that the facial droop is much improved today. I have reviewed his CT and MRI findings which show significant mass lesion with suggestion of an esophageal primary site with mediastinal pulmonary and hepatic metastases as well as a lesion of the right skull base inflating the stylomastoid foramen which is the most likely cause of his facial weakness. I have discussed with his PCP that this does not appear to be a viral palsy but rather of tumor metastasis. Although I was consulted for evaluation of the right skull base this is not palpable clinically and as it is not suspected as a primary would not be the most amenable site to biopsy. I would recommend consultation for evaluation and possible biopsy of his esophageal mass as this is the most likely primary site. General surgery and oncology have already been consulted as well as neurology and we will await their input for further treatment planning. I did talk with the patient at the bedside who advised me he was informed of his pulmonary mass. I discussed with him the findings of other lesions with a suspected esophageal primary site and the need for further evaluation and workup. Overall the extensiveness of the disease process would portend a very poor prognosis with treatment options pending the nature of the primary lesion. I would consider speech therapy evaluation for his swallow although he reports no significant symptomatology he is definitely at high risk for aspiration. I will remain available for further assistance should that be necessary although I see no need for immediate intervention on my behalf at this time. I be happy to continue to follow up and provide assistance as needed as his treatment progresses.
[2018-10-29] MEDS: Vitamin B Comp W-C Capsule 1 CAP PO (08:27)
[2018-10-29] MEDS: Aspirin 325 MG Tablet PO (08:27)
[2018-10-29] MEDS: Metoprolol Tartrate 50 MG Tablet PO ×2 (08:28→21:46)
--- NOTE | 2018-10-29 09:10 | PCM.CONS.GEN ---
Problem List (1) Esophageal mass Status: Acute Reason for Consult Date of Consultation: 10/29/18 Reason for Consultation: Esophageal mass History of Present Illness: The patient is a 78 year old M who presented to the ED with newly noted right-sided facial drooping which started at 0900 AM the morning of 10/27. Patient had a stroke work up which consisted of Head/Neck CTA which showed new mediastinal adenopathy and esophageal wall thickening. [place] was normal. 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 Stroke was ruled-out and patient is being treated for Castillo's palsy. Patient also noted he has had hemoptysis for greater than 1 month. He has also noted right-sided neck pain for approximately a couple of weeks. He has had a 40 pound weight loss over a 6 month time period. He notes early satiety and anorexia. He denies chest pain, shortness of breath, reflux or heartburn symptoms. He follows with Dr. Cohen as his PCP, whom he recently was evaluated by last week for a routine check-up. Patient denies previous upper and lower endoscopy. He noted having a colectomy with ostomy creation for a bowel obstruction approximately [address] [facility]. He notes the ostomy was reversed approximately 1 year later. Patient also notes previous myocardial infarction around the time of the bowel obstruction surgery and had 3 cardiac stents placed at that time at [facility] by Dr. Drummond. 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 He is maintained on a daily ASA. He denies other previous abdominal surgeries. He denies change in bowel habits, melena or bright red blood per rectum. He was a smoker and has since quit approximately 14 years ago. He consumes approximately 1-2 beers daily. Past Medical History Past Medical History (Chronic Problems): Chronic Problems Hypertension (Chronic) Borderline type 2 diabetes mellitus (Chronic) Dyslipidemia (Chronic) Left lung mass (Chronic) Recent diagnosis Coronary artery disease (Chronic) Allergies lorazepam [From Ativan] Allergy (Verified 10/27/18 15:54) Other CAUSED A HEART ATTACK Penicillins [PCN] Allergy (Verified 10/27/18 15:54) Unknown Home Medications: Ambulatory Orders Medication Instructions Recorded Aspirin 325 mg PO DAILY@0800 10/27/18 Atorvastatin Calcium 40 mg PO QHS 10/27/18 Flaxseed Oil [Flax Oil] 1,000 mg PO DAILY 10/27/18 Metoprolol Tartrate 50 mg PO BID 10/27/18 Sour Baez Extract [Tart Baez 1,000 mg PO QHS 10/27/18 Extract] Turmeric 400 mg PO DAILY 10/27/18 Vitamin B Complex [Balance B-50] 1 each PO DAILY 10/27/18 Surgical History: - - colectomy with ostomy approximately 25-30 years ago. Ostomy reversal one year later. 3 cardiac stents placed approximately 25-30 years ago. Psychiatric History: No pertinent psych hx Lives: Spouse/ Significant Other Smoking Status: Former smoker Tobacco Use: - - Ex-Smoker Alcohol: Heavy - in the past, at present 1-2 beers - *Family History Paternal History Items: Cancer - Patient does not know which cancer, COPD Maternal History Items: No pertinent history Review of Systems Constitutional: Reports: Anorexia, Weight Change, Fatigue HEENT: Reports: Sinus Congestion, - - Right-sided facial drooping Cardiovascular: Denies: Chest Pain, Palpitations Respiratory: Reports: Cough, Hemoptysis, Shortness of Breath Gastrointestinal: Denies: Abdominal Pain, Nausea, Vomiting Genitourinary: Denies: Dysuria Musculoskeletal: Reports: Neck Pain - Right-sided. Denies: Joint Pain, Joint Tenderness Skin: Denies: Rash, Wounds Neurological: Denies: Numbness, Tingling, Focal weakness Psychiatric: Denies: Anxiety, Depression, Homicidal Ideations, Suicidal Ideations Hematologic/ Lymphatic: Denies: Easy Bruising, Easy Bleeding Patient Problems: Active and Suspected Problems Castillo's palsy (Acute) Esophageal mass (Acute) - Physical Exam General: Alert, Oriented x3, Cooperative HEENT: - - Right facial drooping Neck: Carotid Bruits, Bilateral Lungs: Wheezes Cardiovascular: Regular rate, Murmur Abdomen: Bowel Sounds Present, Soft, Non Tender, - - Nicely healed midline incision Extremities: No edema, Capillary Refill Less than 3 Seconds Skin: No rashes, No breakdown Musculoskeletal: No Tenderness to Palpation of Joints or Extremities Neurological: Facial Droop Psych/Mental Status: Normal Affect, Appropriate Vital Signs Temp Pulse Resp BP Pulse Ox 97.5 F L 76 16 131/74 H 90 10/29/18 03:10 10/29/18 08:28 10/29/18 03:10 10/29/18 08:28 10/29/18 08:00 Oxygen Flow Rate (L/min) 1 Oxygen Delivery Method Room Air Weight: 144 lb 6.444 oz Body Mass Index (BMI) 21.9 Intake and Output for Last 24 Hours 10/27/18 10/28/18 10/29/18 23:59 23:59 23:59 Intake Total 473 / 473 1478 / 1478 100 / 100 Output Total 600 / 600 1135 / 1135 825 / 825 Balance -127 / -127 343 / 343 -725 / -725 Laboratory Tests Past 24 Hrs 10/28/18 10/28/18 10/28/18 05:55 Unknown Unknown Hemoglobin A1c 6.1 Angiotensin Convert Enz Pending Lyme Total Antibody Pending Lyme Disease Interpret Pending HIV 1&2 Antibody Pending POC Glucose 10/29/18 10/28/18 06:48 16:48 POC Glucose 78 141 H Assessment/Plan All Active Problems Castillo's palsy (Acute) Esophageal mass (Acute) I have been consulted in conjunction with Dr. Leo. Impression: Esophageal mass. Notable mass within the lungs, liver and brain concerning for metastasis. Plan: Patient was discussed with Dr. Leo. Dr. Leo will plan to perform an upper endoscopy with biopsies. Procedure details, risks and benefits have been explained to the patient. Patient has had the opportunity to ask and have questions answered. Plan for upper scope tomorrow morning. Thank you for allowing us to participate in this patient's care. Code Visit Office Visits / Consults: [id number] IP Consult L3
--- NOTE | 2018-10-29 09:15 | CON.PCM_ITS ---
Problem List (1) Esophageal mass Status: Acute Reason for Consult Date of Consultation: 10/29/18 Reason for Consultation: Esophageal mass History of Present Illness: The patient is a 78 year old M who presented to the ED with newly noted right- sided facial drooping which started at 0900 AM the morning of 10/27. Patient had a stroke work up which consisted of Head/Neck CTA which showed new mediastinal adenopathy and esophageal wall thickening. [place] was normal. 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 Stroke was ruled-out and patient is being treated for Castillo's palsy. Patient also noted he has had hemoptysis for greater than 1 month. He has also noted right- sided neck pain for approximately a couple of weeks. He has had a 40 pound weight loss over a 6 month time period. He notes early satiety and anorexia. He denies chest pain, shortness of breath, reflux or heartburn symptoms. He follows with Dr. Cohen as his PCP, whom he recently was evaluated by last week for a routine check-up. Patient denies previous upper and lower endoscopy. He noted having a colectomy with ostomy creation for a bowel obstruction approximately 25-[address] [facility]. He notes the ostomy was reversed approximately 1 year later. Patient also notes previous myocardial infarction around the time of the bowel obstruction surgery and had 3 cardiac stents placed at that time at [facility] by Dr. Drummond. 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 He is maintained on a daily ASA. He denies other previous abdominal surgeries. He denies change in bowel habits, melena or bright red blood per rectum. He was a smoker and has since quit approximately 14 years ago. He consumes approximately 1-2 beers daily. Past Medical History Past Medical History (Chronic Problems): Chronic Problems Hypertension (Chronic) Borderline type 2 diabetes mellitus (Chronic) Dyslipidemia (Chronic) Left lung mass (Chronic) Recent diagnosis Coronary artery disease (Chronic) Allergies lorazepam [From Ativan] Allergy (Verified 10/27/18 15:54) Other CAUSED A HEART ATTACK Penicillins [PCN] Allergy (Verified 10/27/18 15:54) Unknown Home Medications: Ambulatory Orders Medication Instructions Recorded Aspirin 325 mg PO DAILY@0800 10/27/18 Atorvastatin Calcium 40 mg PO QHS 10/27/18 Flaxseed Oil [Flax Oil] 1,000 mg PO DAILY 10/27/18 Metoprolol Tartrate 50 mg PO BID 10/27/18 Sour Baez Extract [Tart Baez 1,000 mg PO QHS 10/27/18 Extract] Turmeric 400 mg PO DAILY 10/27/18 Vitamin B Complex [Balance B-50] 1 each PO DAILY 10/27/18 Surgical History: - - colectomy with ostomy approximately 25-30 years ago. Ostomy reversal one year later. 3 cardiac stents placed approximately 25-30 years ago. Psychiatric History: No pertinent psych hx Lives: Spouse/ Significant Other Smoking Status: Former smoker Tobacco Use: - - Ex-Smoker Alcohol: Heavy - in the past, at present 1-2 beers - *Family History Paternal History Items: Cancer - Patient does not know which cancer, COPD Maternal History Items: No pertinent history Review of Systems Constitutional: Reports: Anorexia, Weight Change, Fatigue HEENT: Reports: Sinus Congestion, - - Right-sided facial drooping Cardiovascular: Denies: Chest Pain, Palpitations Respiratory: Reports: Cough, Hemoptysis, Shortness of Breath Gastrointestinal: Denies: Abdominal Pain, Nausea, Vomiting Genitourinary: Denies: Dysuria Musculoskeletal: Reports: Neck Pain - Right-sided. Denies: Joint Pain, Joint Tenderness Skin: Denies: Rash, Wounds Neurological: Denies: Numbness, Tingling, Focal weakness Psychiatric: Denies: Anxiety, Depression, Homicidal Ideations, Suicidal Ideations Hematologic/ Lymphatic: Denies: Easy Bruising, Easy Bleeding Patient Problems: Active and Suspected Problems Castillo's palsy (Acute) Esophageal mass (Acute) - Physical Exam General: Alert, Oriented x3, Cooperative HEENT: - - Right facial drooping Neck: Carotid Bruits, Bilateral Lungs: Wheezes Cardiovascular: Regular rate, Murmur Abdomen: Bowel Sounds Present, Soft, Non Tender, - - Nicely healed midline incision Extremities: No edema, Capillary Refill Less than 3 Seconds Skin: No rashes, No breakdown Musculoskeletal: No Tenderness to Palpation of Joints or Extremities Neurological: Facial Droop Psych/Mental Status: Normal Affect, Appropriate Vital Signs Temp Pulse Resp BP Pulse Ox 97.5 F L 76 16 131/74 H 90 10/29/18 03:10 10/29/18 08:28 10/29/18 03:10 10/29/18 08:28 10/29/18 08:00 Oxygen Flow Rate (L/min) 1 Oxygen Delivery Method Room Air Weight: 144 lb 6.444 oz Body Mass Index (BMI) 21.9 Intake and Output for Last 24 Hours 10/27/18 10/28/18 10/29/18 23:59 23:59 23:59 Intake Total 473 / 473 1478 / 1478 100 / 100 Output Total 600 / 600 1135 / 1135 825 / 825 Balance -127 / -127 343 / 343 -725 / -725 Laboratory Tests Past 24 Hrs 10/28/18 10/28/18 10/28/18 05:55 Unknown Unknown Hemoglobin A1c 6.1 Angiotensin Convert Enz Pending Lyme Total Antibody Pending Lyme Disease Interpret Pending HIV 1&2 Antibody Pending POC Glucose 10/29/18 10/28/18 06:48 16:48 POC Glucose 78 141 H Assessment/Plan All Active Problems Castillo's palsy (Acute) Esophageal mass (Acute) I have been consulted in conjunction with Dr. Leo. Impression: Esophageal mass. Notable mass within the lungs, liver and brain concerning for metastasis. Plan: Patient was discussed with Dr. Leo. Dr. Leo will plan to perform an upper endoscopy with biopsies. Procedure details, risks and benefits have been explained to the patient. Patient has had the opportunity to ask and have questions answered. Plan for upper scope tomorrow morning. Thank you for allowing us to participate in this patient's care. Code Visit Office Visits / Consults: [id number] IP Consult L3
[2018-10-29 09:38] LABS: HIV - WCH Non-Reactive (Nonreactive)
--- NOTE | 2018-10-29 13:15 | PCM.CONS.GEN ---
Problem List (1) Hypertension Status: Chronic Qualifiers: Hypertension type: essential hypertension Qualified Code(s): I10 - Essential (primary) hypertension (2) Borderline type 2 diabetes mellitus Status: Chronic (3) Castillo's palsy Status: Acute (4) Dyslipidemia Status: Chronic (5) Left lung mass Status: Chronic Comment: Recent diagnosis (6) Coronary artery disease Status: Chronic (7) Esophageal mass Status: Acute Reason for Consult Date of Consultation: 10/29/18 - Late entry Reason for Consultation: Lung mass History of Present Illness: The patient is a 78 year old M, with past medical history listed below, who presented to [facility] on 10/27/2018 after being noted to have a right facial droop at approximately 9 AM. Patient denied any focal weakness or sensory loss at that time. Patient reportedly had had a cough since and in August reportedly had coughed up blood-tinged sputum. Patient had a chest x-ray showing a lung mass and a CT scan scheduled for next week. Patient presented for evaluation. In the ER, patient was noted to be in sinus rhythm and a CTA of the head and neck showed significant stenosis with suspicious adenopathy, esophageal wall thickening and left lower lobe mass. Patient was admitted to the floor for further evaluation. Patient does report a remote history of smoking. Patient states that he has had some episodes of dysphagia recently and states it has been going on for a while, but I do not really watch it. Patient does report problems with swallowing chicken recently. Patient continues to have a cough productive of sputum streaked with dark blood. Patient is unclear on when he is ever had chest imaging previously. Patient denies any unintentional weight loss, fever, chills, nausea or vomiting. Patient has not reported coughing up any fetid sputum. Patient denies any chest pain at this time. Patient is not aware of any acute aspiration events. Patient does not use any inhalers at home. Patient is unaware of ever having pulmonary function testing. Patient does report drinking 1-2 beers a day, but states he used to drink much more. Patient denies any history of IV drug use. No exposure to asbestos or TB has been reported. Review of systems otherwise negative x10 systems. Past Medical History Past Medical History (Chronic Problems): Chronic Problems Hypertension (Chronic) Borderline type 2 diabetes mellitus (Chronic) Dyslipidemia (Chronic) Left lung mass (Chronic) Recent diagnosis Coronary artery disease (Chronic) Allergies lorazepam [From Ativan] Allergy (Verified 10/27/18 15:54) Other CAUSED A HEART ATTACK Penicillins [PCN] Allergy (Verified 10/27/18 15:54) Unknown Home Medications: Ambulatory Orders Medication Instructions Recorded Aspirin 325 mg PO DAILY@0800 10/27/18 Atorvastatin Calcium 40 mg PO QHS 10/27/18 Flaxseed Oil [Flax Oil] 1,000 mg PO DAILY 10/27/18 Metoprolol Tartrate 50 mg PO BID 10/27/18 Sour Baez Extract [Tart Baez 1,000 mg PO QHS 10/27/18 Extract] Turmeric 400 mg PO DAILY 10/27/18 Vitamin B Complex [Balance B-50] 1 each PO DAILY 10/27/18 Surgical History: - - colectomy with ostomy approximately 25-30 years ago. Ostomy reversal one year later. 3 cardiac stents placed approximately 25-30 years ago. Psychiatric History: No pertinent psych hx Lives: Spouse/ Significant Other Smoking Status: Former smoker Tobacco Use: - - Ex-Smoker Alcohol: Heavy - in the past, at present 1-2 beers - *Family History Paternal History Items: Cancer - Patient does not know which cancer, COPD Maternal History Items: No pertinent history Review of Systems Comment: See HPI Patient Problems: Active and Suspected Problems Castillo's palsy (Acute) Esophageal mass (Acute) Objective: CT scan of the chest was personally reviewed. This does show thickening of the upper thoracic esophagus, extensive left lower lobe lesions measuring 10.4 and 1.6 cm, prominent mediastinal lymphadenopathy, hepatic masses and cholelithiasis. - Physical Exam General: Alert, Oriented x3, Cooperative, No apparent distress, - - Slight dysarthria without conversational dyspnea. HEENT: Atraumatic, PERRLA, EOMI, - - Erythema of the right eye. Oral: Moist Mucosa, No Gingival or Mucosal Lesions/ Ulcerations Neck: Supple, No JVD, No Nodes, Trachea Midline Lungs: No wheeze, No rales, Diminished - Left base, Rhonchi - Left base, - - Symmetric expansion. Cardiovascular: Regular rate, Regular Rhythm, Normal S1, Normal S2, No murmurs, No rub noted, No Gallop Abdomen: Bowel Sounds Present, Soft, Non Tender, Non-Distended Extremities: No clubbing, No cyanosis, No edema, Capillary Refill Less than 3 Seconds Skin: No rashes, No breakdown Musculoskeletal: No Tenderness to Palpation of Joints or Extremities Lymphatic: Cervical Adenopathy Neurological: - - Right facial droop appreciated. Unable to find appreciable difference in muscle strength of extremities. Sensation appears to be intact. Psych/Mental Status: Normal Affect, Appropriate Vital Signs Temp Pulse Resp BP Pulse Ox 36.7 C 51 L 18 131/74 H 94 10/29/18 09:10 10/29/18 10:42 10/29/18 09:10 10/29/18 09:10 10/29/18 09:10 Oxygen Flow Rate (L/min) 1 Oxygen Delivery Method Room Air Weight: 65.5 kg Body Mass Index (BMI) 21.9 Intake and Output for Last 24 Hours 10/27/18 10/28/18 10/29/18 23:59 23:59 23:59 Intake Total 473 / 473 1478 / 1478 580 / 580 Output Total 600 / 600 1135 / 1135 1050 / 1050 Balance -127 / -127 343 / 343 -470 / -470 Laboratory Tests Past 24 Hrs 10/28/18 Unknown HIV 1&2 Antibody Non-Reactive POC Glucose 10/29/18 10/28/18 06:48 16:48 POC Glucose 78 141 H Clinical Impression(s) from Imaging Studies Head CTA 10/27/18 15:58 IMPRESSION: 1. No carotid artery dissection or thrombus. 2. Mild bilateral carotid bulb atherosclerosis without hemodynamically significant stenosis. 3. SUSPICIOUS ADENOPATHY of the mediastinum, incompletely imaged. 4. ESOPHAGEAL WALL THICKENING SUSPICIOUS FOR NEOPLASM. 5. Degenerative changes of the cervical spine. Electronically Signed: Guero Noe MD at 16:46 EDT , Service support , ADDENDUM: 10/28/18 05 IMPRESSION: Patient is cleared for MRI. Electronically Signed: Richard Smith MD at 5:14 EDT , Service support , ADDENDUM: 10/28/18 05 IMPRESSION: 1. No carotid artery dissection or thrombus. 2. Mild bilateral carotid bulb atherosclerosis without hemodynamically significant stenosis. 3. SUSPICIOUS ADENOPATHY of the mediastinum, incompletely imaged. 4. ESOPHAGEAL WALL THICKENING SUSPICIOUS FOR NEOPLASM. 5. Degenerative changes of the cervical spine. Electronically Signed: Guero Noe MD at 16:46 EDT , Service support , ADDENDUM: 10/28/18 0528 IMPRESSION: Patient is cleared for MRI. Electronically Signed: Richard Smith MD at 5:14 EDT , Service support , Neck CTA 10/27/18 15:58 IMPRESSION: 1. No carotid artery dissection or thrombus. 2. Mild bilateral carotid bulb atherosclerosis without hemodynamically significant stenosis. 3. SUSPICIOUS ADENOPATHY of the mediastinum, incompletely imaged. 4. ESOPHAGEAL WALL THICKENING SUSPICIOUS FOR NEOPLASM. 5. Degenerative changes of the cervical spine. Electronically Signed: Guero Noe MD at 16:46 EDT , Service support , ADDENDUM: 10/28/18 0522 IMPRESSION: Patient is cleared for MRI. Electronically Signed: Richard Smith MD at 5:14 EDT , Service support , Brain CT 10/27/18 15:59 IMPRESSION: 1. No acute intracranial hemorrhage or mass effect. 2. Central parenchymal volume loss. White matter changes that are nonspecific but most commonly associated with chronic small vessel ischemic disease. 3. Chronic sinusitis. N.B. : The above information has been verbally conveyed by Guero Noe MD to Gray Lam MD, on 10/27/2018 16:31:44 (ET). Electronically Signed: Guero Noe MD at 16:33 EDT , Service support , ADDENDUM: 10/27/18 1640 IMPRESSION: 1. No acute intracranial hemorrhage or mass effect. 2. Central parenchymal volume loss. White matter changes that are nonspecific but most commonly associated with chronic small vessel ischemic disease. 3. Chronic sinusitis. N.B. : The above information has been verbally conveyed by Guero Noe MD to Gray Lam MD, on 10/27/2018 16:31:44 (ET). Electronically Signed: Guero Noe MD at 16:33 EDT , Service support , Chest X-Ray 10/27/18 15:59 IMPRESSION: Mass density at the left lung base with potential cavitation. Chest CT recommended. Electronically Signed: Guero Noe MD at 16:35 EDT , Service support , Brain MRI 10/28/18 09:00 IMPRESSION: 1. Senescent changes with no evidence of acute intracranial bleed, mass or ischemia. 2. Right inferior skull base appeared muscular infiltrating lesion worrisome for underlying sarcoma with metastatic disease not excluded. There is likely infiltration of the right facial nerve and stylomastoid foramen infiltration. Recommend dedicated skull base imaging with thin slice postcontrast SPGR T1 with diffusion imaging for further assessment and analysis. Recommend ENT consultation for definitive tissue assessment. Electronically Signed: Kingsley Penn DO at 16:00 EDT , Service support , Chest CT 10/29/18 05:55 IMPRESSION: 1. 5 cm in length suspicious mural lesion of the upper thoracic esophagus. 2. Several left lower lobe lesions measuring approximately 10.4 cm and 1.6 cm respectively, compatible with malignant tumor. 3. 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 4. Probable hepatic metastases. 5. Cholelithiasis. Individualized dose optimization techniques were used for this CT. at 0724 Reported and signed by: Rod Argueta MD Electronically Signed: Rod Argueta, at 7:23 EDT Tel , Service support , Assessment/Plan All Active Problems Castillo's palsy (Acute) Esophageal mass (Acute) RECOMMENDATIONS: 1. Await results of EGD 2. Consider modified diet 3. Initiate empiric antibiotics if patient develops fever or other constitutional symptoms 4. PRN albuterol may be helpful IMPRESSIONS: 1. Lung mass Patient with multiple lesions on CT scan and MRI that appear to be metastatic in nature. Given low likelihood of metastatic lesions to the esophagus, this may indicate a primary. Agree with proceeding with an EGD for now. Multiple lymph nodes and left lower lobe lesion would likely be amenable to endobronchial ultrasound evaluation. Await results of EGD. If negative, bronchoscopy may be indicated. Poor prognosis at this time given multiple sites of metastasis. Given patient's obstruction of the esophagus, modified diet to prevent aspiration should be initiated. Cannot rule out a pulmonary abscess, but patient does not have fever, leukocytosis or fetid sputum reported during this hospitalization. 2. Castillo's palsy/coronary artery disease/hypertension/type 2 diabetes mellitus/advanced age Complicates care, management, recovery and prognosis. Code Visit Inpatient E&M: 46763 Init Hosp L2
--- NOTE | 2018-10-29 13:20 | CON.PCM_ITS ---
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 Patient denied any focal weakness or sensory loss at that time. Patient reportedly had had a cough since and in August reportedly had coughed up blood-tinged sputum. Patient had a chest x-ray showing a lung mass and a CT scan scheduled for next week. Patient presented for evaluation. In the ER, patient was noted to be in sinus rhythm and a CTA of the head and neck showed significant stenosis with suspicious adenopathy, esophageal wall thickening and left lower lobe mass. Patient was admitted to the floor for further evaluation. Patient does report a remote history of smoking. Patient states that he has had some episodes of dysphagia recently and states it has been going on for a while, but I do not really watch it. Patient does report problems with swallowing chicken recently. Patient continues to have a cough productive of sputum streaked with dark blood. Patient is unclear on when he is ever had chest imaging previously. Patient denies any unintentional weight loss, fever, chills, nausea or vomiting. Patient has not reported coughing up any fetid sputum. Patient denies any chest pain at this time. Patient is not aware of any acute aspiration events. Patient does not use any inhalers at home. Patient is unaware of ever having pulmonary function testing. Patient does report drinking 1-2 beers a day, but states he used to drink much more. Patient denies any history of IV drug use. No exposure to asbestos or TB has been reported. Review of systems otherwise negative x10 systems. Past Medical History Past Medical History (Chronic Problems): Chronic Problems Hypertension (Chronic) Borderline type 2 diabetes mellitus (Chronic) Dyslipidemia (Chronic) Left lung mass (Chronic) Recent diagnosis Coronary artery disease (Chronic) Allergies lorazepam [From Ativan] Allergy (Verified 10/27/18 15:54) Other CAUSED A HEART ATTACK Penicillins [PCN] Allergy (Verified 10/27/18 15:54) Unknown Home Medications: Ambulatory Orders Medication Instructions Recorded Aspirin 325 mg PO DAILY@0800 10/27/18 Atorvastatin Calcium 40 mg PO QHS 10/27/18 Flaxseed Oil [Flax Oil] 1,000 mg PO DAILY 10/27/18 Metoprolol Tartrate 50 mg PO BID 10/27/18 Sour Baez Extract [Tart Baez 1,000 mg PO QHS 10/27/18 Extract] Turmeric 400 mg PO DAILY 10/27/18 Vitamin B Complex [Balance B-50] 1 each PO DAILY 10/27/18 Surgical History: - - colectomy with ostomy approximately 25-30 years ago. Ostomy reversal one year later. 3 cardiac stents placed approximately 25-30 years ago. Psychiatric History: No pertinent psych hx Lives: Spouse/ Significant Other Smoking Status: Former smoker Tobacco Use: - - Ex-Smoker Alcohol: Heavy - in the past, at present 1-2 beers - *Family History Paternal History Items: Cancer - Patient does not know which cancer, COPD Maternal History Items: No pertinent history Review of Systems Comment: See HPI Patient Problems: Active and Suspected Problems Castillo's palsy (Acute) Esophageal mass (Acute) Objective: CT scan of the chest was personally reviewed. This does show thickening of the upper thoracic esophagus, extensive left lower lobe lesions measuring 10.4 and 1.6 cm, prominent mediastinal lymphadenopathy, hepatic masses and cholelithiasis. - Physical Exam General: Alert, Oriented x3, Cooperative, No apparent distress, - - Slight dysarthria without conversational dyspnea. HEENT: Atraumatic, PERRLA, EOMI, - - Erythema of the right eye. Oral: Moist Mucosa, No Gingival or Mucosal Lesions/ Ulcerations Neck: Supple, No JVD, No Nodes, Trachea Midline Lungs: No wheeze, No rales, Diminished - Left base, Rhonchi - Left base, - - Symmetric expansion. Cardiovascular: Regular rate, Regular Rhythm, Normal S1, Normal S2, No murmurs, No rub noted, No Gallop Abdomen: Bowel Sounds Present, Soft, Non Tender, Non-Distended Extremities: No clubbing, No cyanosis, No edema, Capillary Refill Less than 3 Seconds Skin: No rashes, No breakdown Musculoskeletal: No Tenderness to Palpation of Joints or Extremities Lymphatic: Cervical Adenopathy Neurological: - - Right facial droop appreciated. Unable to find appreciable difference in muscle strength of extremities. Sensation appears to be intact. Psych/Mental Status: Normal Affect, Appropriate Vital Signs Temp Pulse Resp BP Pulse Ox 36.7 C 51 L 18 131/74 H 94 10/29/18 09:10 10/29/18 10:42 10/29/18 09:10 10/29/18 09:10 10/29/18 09:10 Oxygen Flow Rate (L/min) 1 Oxygen Delivery Method Room Air Weight: 65.5 kg Body Mass Index (BMI) 21.9 Intake and Output for Last 24 Hours 10/27/18 10/28/18 10/29/18 23:59 23:59 23:59 Intake Total 473 / 473 1478 / 1478 580 / 580 Output Total 600 / 600 1135 / 1135 1050 / 1050 Balance -127 / -127 343 / 343 -470 / -470 Laboratory Tests Past 24 Hrs 10/28/18 Unknown HIV 1&2 Antibody Non-Reactive POC Glucose 10/29/18 10/28/18 06:48 16:48 POC Glucose 78 141 H Clinical Impression(s) from Imaging Studies Head CTA 10/27/18 15:58 IMPRESSION: 1. No carotid artery dissection or thrombus. 2. Mild bilateral carotid bulb atherosclerosis without hemodynamically significant stenosis. 3. SUSPICIOUS ADENOPATHY of the mediastinum, incompletely imaged. 4. ESOPHAGEAL WALL THICKENING SUSPICIOUS FOR NEOPLASM. 5. Degenerative changes of the cervical spine. Electronically Signed: Guero Noe MD at 16:46 EDT , Service support , ADDENDUM: 10/28/18 05 IMPRESSION: Patient is cleared for MRI. Electronically Signed: Richard Smith MD at 5:14 EDT , Service support , ADDENDUM: 10/28/18 05 IMPRESSION: 1. No carotid artery dissection or thrombus. 2. Mild bilateral carotid bulb atherosclerosis without hemodynamically significant stenosis. 3. SUSPICIOUS ADENOPATHY of the mediastinum, incompletely imaged. 4. ESOPHAGEAL WALL THICKENING SUSPICIOUS FOR NEOPLASM. 5. Degenerative changes of the cervical spine. Electronically Signed: Guero Noe MD at 16:46 EDT , Service support , ADDENDUM: 10/28/18 0528 IMPRESSION: Patient is cleared for MRI. Electronically Signed: Richard Smith MD at 5:14 EDT , Service support , Neck CTA 10/27/18 15:58 IMPRESSION: 1. No carotid artery dissection or thrombus. 2. Mild bilateral carotid bulb atherosclerosis without hemodynamically significant stenosis. 3. SUSPICIOUS ADENOPATHY of the mediastinum, incompletely imaged. 4. ESOPHAGEAL WALL THICKENING SUSPICIOUS FOR NEOPLASM. 5. Degenerative changes of the cervical spine. Electronically Signed: Guero Noe MD at 16:46 EDT , Service support , ADDENDUM: 10/28/18 0522 IMPRESSION: Patient is cleared for MRI. Electronically Signed: Richard Smith MD at 5:14 EDT , Service support , Brain CT 10/27/18 15:59 IMPRESSION: 1. No acute intracranial hemorrhage or mass effect. 2. Central parenchymal volume loss. White matter changes that are nonspecific but most commonly associated with chronic small vessel ischemic disease. 3. Chronic sinusitis. N.B. : The above information has been verbally conveyed by Guero Noe MD to Gray Lam MD, on 10/27/2018 16:31:44 (ET). Electronically Signed: Guero Noe MD at 16:33 EDT , Service support , ADDENDUM: 10/27/18 1640 IMPRESSION: 1. No acute intracranial hemorrhage or mass effect. 2. Central parenchymal volume loss. White matter changes that are nonspecific but most commonly associated with chronic small vessel ischemic disease. 3. Chronic sinusitis. N.B. : The above information has been verbally conveyed by Guero Noe MD to Gray Lam MD, on 10/27/2018 16:31:44 (ET). Electronically Signed: Guero Noe MD at 16:33 EDT , Service support , Chest X-Ray 10/27/18 15:59 IMPRESSION: Mass density at the left lung base with potential cavitation. Chest CT recommended. Electronically Signed: Guero Noe MD at 16:35 EDT , Service support , Brain MRI 10/28/18 09:00 IMPRESSION: 1. Senescent changes with no evidence of acute intracranial bleed, mass or ischemia. 2. Right inferior skull base appeared muscular infiltrating lesion worrisome for underlying sarcoma with metastatic disease not excluded. There is likely infiltration of the right facial nerve and stylomastoid foramen infiltration. Recommend dedicated skull base imaging with thin slice postcontrast SPGR T1 with diffusion imaging for further assessment and analysis. Recommend ENT consultation for definitive tissue assessment. Electronically Signed: Kingsley Penn DO at 16:00 EDT , Service support , Chest CT 10/29/18 05:55 IMPRESSION: 1. 5 cm in length suspicious mural lesion of the upper thoracic esophagus. 2. Several left lower lobe lesions measuring approximately 10.4 cm and 1.6 cm respectively, compatible with malignant tumor. 3. 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 4. Probable hepatic metastases. 5. Cholelithiasis. Individualized dose optimization techniques were used for this CT. at 0724 Reported and signed by: Rod Argueta MD Electronically Signed: Rod Argueta, at 7:23 EDT Tel , Service support , Assessment/Plan All Active Problems Castillo's palsy (Acute) Esophageal mass (Acute) RECOMMENDATIONS: 1. Await results of EGD 2. Consider modified diet 3. Initiate empiric antibiotics if patient develops fever or other constitutional symptoms 4. PRN albuterol may be helpful IMPRESSIONS: 1. Lung mass Patient with multiple lesions on CT scan and MRI that appear to be metastatic in nature. Given low likelihood of metastatic lesions to the esophagus, this may indicate a primary. Agree with proceeding with an EGD for now. Multiple lymph nodes and left lower lobe lesion would likely be amenable to endobronchial ultrasound evaluation. Await results of EGD. If negative, bronchoscopy may be indicated. Poor prognosis at this time given multiple sites of metastasis. Given patient's obstruction of the esophagus, modified diet to prevent aspiration should be initiated. Cannot rule out a pulmonary abscess, but patient does not have fever, leukocytosis or fetid sputum reported during this hospitalization. 2. Castillo's palsy/coronary artery disease/hypertension/type 2 diabetes mellitus/advanced age Complicates care, management, recovery and prognosis. Code Visit Inpatient E&M: 78590 Init Hosp L2
--- NOTE | 2018-10-29 13:30 | CASEMGMT ---
RN BC Face to Face with patient for initial transition planning/care coordination assessment. RN CM introduced self and role at [facility]. Patient lying in bed, alert and oriented, at bedside. Patient willing to participate in assessment and is able to answer all questions appropriately. Care providers, pharmacy, and demographics verified. Patient wishes to discharge home, denies need for home health at this time. Patient states he has no further needs or concerns at this time. CM to follow for discharge planning needs that may arise. PCP: Donald Cohen Specialists: none Preferred Pharmacy: [facility] [place] [employer] Prescription Benefit: Yes, [employer] Living Will/HPOA: yes, Katie Rojas LNOK: Living Arrangements: Patient lives with in 2 story house with 1st floor setup. Patient is independent at home. 2 steps with railing to enter the home. Transportation: self/ DME/HHC: Patient states he has access to shower chair, raised toilet seat, and walker if needed. Denies home oxygen, nebulizer, bipap, or cpap. Denies previous HHC or SNF Disposition Plan: Patient to discharge home with family support and follow-up plans in place. Alyssa BIGGS, RN, CM
--- NOTE | 2018-10-29 16:02 | NM_ITS ---
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 WHOLE BODY 99m Tc MDP RADIONUCLIDE BONE SCINTIGRAPHY COMPARISON: CT of the chest, abdomen and pelvis reports 10/30/2018 FINDINGS: Following the intravenous administration of 26.1 mCi of 99m Tc MDP, whole body bone images reveal: 1. Increased radiopharmaceutical concentration is identified in the right proximal-mid humeral diaphysis. 2. Facilitated uptake is visualized in the upper-mid cervical spine posteriorly on the left and right, posterior sacrum, the acromioclavicular, sternoclavicular and acromioclavicular compartments of both shoulders, the right hand. 3. The remaining skeletal structures are scintigraphically unremarkable with normal-appearing renal images and urinary bladder activity identified. There is multifocal cutaneous contamination artifact noted on reveal whole body projections to include the distributions of the right-left upper and lower extremities. NM/Bone Scan Whole Body IMPRESSION: 1. The increase in radiopharmaceutical concentration visualized in the right proximal-mid humeral diaphysis is of uncertain etiology and may represent previous trauma-fracture. Plain film radiography correlation is recommended. 2. Degenerative arthritis appears expressed in the cervical spine and sacrum, bilateral shoulders, right hand. 3. There is no definitive typical scintigraphic evidence of diffuse axial skeletal metastatic disease on the current examination. Prominent soft tissue-cutaneous contamination artifact is visualized. Electronically Signed: Alexis Castle DO at 13:50 EDT Tel , Service support ,
--- NOTE | 2018-10-29 16:49 | ONC.CON.INP2 ---
- Problem List (1) Esophageal mass Status: Acute (2) Left lung mass Status: Acute Comment: Recent diagnosis (3) Bone lesion Status: Acute (4) Lesion of liver Status: Acute (5) Weight loss, non-intentional Status: Acute (6) Facial palsy Status: Acute Consult Referring Physician: Hospitalist service Consult Results: Clinically suspect widely disseminated malignancy of unknown primary Subjective Date of Service:: 10/29/18 Chief Complaint: facial Palsy History of Present Illness: Patient is a 78-year-old male ex-smoker and ex-excessive alcohol consumer was in his usual state of health until 2017 when he experienced persistent cough, occasional hemoptysis, anorexia and unexplained weight loss. More recently he experienced painless dysphagia and regurgitation of undigested food. He was scheduled for outpatient workup after the discovery of a lung mass when he presented to the emergency room with a new onset right facial palsy. CT scans of the chest including the upper portion of the abdomen showed a mass lesion in the thoracic esophagus, mediastinal adenopathy, multiple masses predominantly in the left lung, and multiple lesions in the liver although radiologically most consistent with a metastatic malignancy. Brain imaging showed no intraparenchymal brain metastases however there is a mass bony lesion at the right facial nerve exit foramen in the base of the skull Past Medical History: Chronic Problems Hypertension (Chronic) Borderline type 2 diabetes mellitus (Chronic) Dyslipidemia (Chronic) Coronary artery disease (Chronic) Past Medical/Surgical History: Past Medical History - Most Recent Inpatient Visit Past Medical History Start: 10/27/18 18:55 Text: Status: Complete Freq: ONCE Protocol: Document 10/27/18 19:48 [facility] (Rec: 10/27/18 19:58 [facility] [id number]) BMI Required to complete PMH What is Patient's BMI 21.4 Past Medical History Unable History Recalled No Query Text:Pt Unable/Family Not Present Neurologic Medical History Hx Stroke/TIA No Hx Dementia/Alzheimer's No Hx Parkinson's Disease No Hx Seizures No Hx Multiple Sclerosis No Hx Migraines No Cardiac Medical History VTE Present on Admission No Hx of Deep Vein Thrombosis/VTE/PE No Hx Hypertension Yes Hx Chest Pain/Angina Yes Hx Heart Attack Yes Hx Cardiac Surgery/Stents/Etc. Yes Hx Heart Failure No Hx Pacemaker/AICD No Hx Irregular Heartbeat and/or Afib No Hx Anticoagulant Therapy No Query Text:(Coumadin, Aspirin, Plavix, Xarelto, etc.) Hx Pain in Legs when Walking/Leg Cramps Yes Respiratory Medical History Hx COPD No Hx Emphysema No Hx Smoking Yes Smoking Status Former smoker Hx Tobacco Use in last 12 months No Hx Sleep Apnea No Do you snore loudly (louder than talking No or can be heard through closed doors)? Do you often feel tired/ fatigued/ No sleepy during daytime? Has anyone observed you stop breathing No during sleep? STOP Results Negative GI Medical History Hx Ulcer No Hx Hepatitis No Hx Cirrhosis No Hx GI Bleed No Hx Unplanned Weight Loss Yes Genitourinary Medical History Indwelling Catheter in Place on Arrival/ No Admission Hx Renal Disease No Hx Dialysis No Musculoskeletal History Hx Arthritis Yes Hx Rheumatoid Arthritis No Endocrine Medical History Hx Diabetes Yes Hx Thyroid Disease No Hematologic Medical History Hx of Blood Transfusion No Hx of Transfusion in last 3 Months No Ever experience any problems with No transfusion(s)? Hx of Preganancy in last 3 Months N/A Nurse Filling Out Transfusion & [facility] Questions: Date: 10/27/18 Time: 19:56 Psycho/Social Medical History Hx Depression No Hx Anxiety No Hx Behavior Disorder No Hx Alcohol Use Yes: 1-2 beers daily Hx Substance Use No Other Medical History Hx Blood Disorders No Hx Anemia No Hx Cancer No Hx Drug Resistant Organism No Wound/Pressure Injury Present on Arrival No /Admission Query Text:If yes, chart assessment in Shift/Clinical Findings Central Line/PICC/VAD Present on Arrival No /Admission Antibiotics within last 7 days? No Methicillin Resistant Staphylococcus aureus Screening Active MRSA No Risk for Readmission Number of Risk Factors 5 At Risk for Readmission Patient is At Risk For Readmission Patient is eligible for Call Back Y Paternal Family History: Cancer - Patient does not know which cancer, COPD Maternal Family History: No pertinent history - Social History Lives: Spouse/ Significant Other Smoking Status: Former smoker Tobacco Use: - - Ex-Smoker Alcohol: Heavy - in the past, at present 1-2 beers Allergies/Adverse Reactions: Allergy/AdvReac Type Severity Reaction Status Date / Time lorazepam [From Ativan] Allergy Other Verified 10/27/18 15:54 Penicillins [PCN] Allergy Unknown Verified 10/27/18 15:54 Review of Systems Constitutional:: Reports: Weakness, Fatigue, Weight loss, Appetite change. Denies: Fever, Sweats, Chills Cardiovascular:: Reports: Dyspnea on exertion. Denies: Chest pain, Palpitations, Orthopnea, PND, Shortness of breath Respiratory: Reports: Cough, Hemoptysis, Shortness of breath upon exertion. Denies: Shortness of Breath, Wheezing Gastrointestinal:: Reports: Dysphagia. Denies: Abdominal pain, Nausea, Vomiting, Diarrhea, Constipation, Hematochezia Genitourinary: Denies: Dysuria, Hematuria, 15, Flank pain Musculoskeletal:: Denies: Back pain, Myalgia, Arthralgia Skin: Denies: Rash, Skin Changes, Wounds Neurological:: Reports: Paralysis - Right side of face. Denies: Headache, Dizziness, Visual changes, Tinnitus, Hearing loss Psychiatric: Reports: Anxiety. Denies: Depression, Homicidal Ideations, Suicidal Ideations Vital Signs Height 5 ft 8 in Weight: 65.5 kg Weight in Pounds 144.4 lbs Pulse Ox 95 Temperature 97.5 F Pulse Rate 61 Respiratory Rate 20 Blood Pressure 110/68 Blood Pressure Position Semi-Fowlers - Physical Exam General: Alert, Oriented x3, No apparent distress, - - Cachectic, ECOG 2 HEENT: Atraumatic, PERRLA, EOMI, Normocephalic, - - Right face paralysis Oropharynx:: Dry mucosa Neck:: Supple, Trachea midline. Negative for: JVD, bilateral Cardiac:: Regular rate, Regular rhythm, Normal S1, Normal S2. Negative for: Murmur Lungs: Clear to auscultation, Diminished, Excusion symmetrical. Negative for: Rhonchi, Wheezes Abdomen:: Soft, Non-tender, Non-distended. Negative for: Hepatosplenomegaly Extremities:: Negative for: Cyanosis, Edema Neurological: Facial Droop - Right facial paralysis, - - No extremities weakness Skin:: Negative for: Lesions, Rash, Petechiae, Ecchymosis Psychiatric:: Appropriate affect, Euthymic Lymphatics:: Negative for: Cervical lymphadenopathy, Supraclavicular lymphadenopathy Laboratory Data: Laboratory Tests CBC, basic metabolic panel and calcium reviewed in EMR Diagnostic Data: Diagnostic Data Head CTA 10/27/18 15:58 IMPRESSION: 1. No carotid artery dissection or thrombus. 2. Mild bilateral carotid bulb atherosclerosis without hemodynamically significant stenosis. 3. SUSPICIOUS ADENOPATHY of the mediastinum, incompletely imaged. 4. ESOPHAGEAL WALL THICKENING SUSPICIOUS FOR NEOPLASM. 5. Degenerative changes of the cervical spine. Electronically Signed: Guero Noe MD at 16:46 EDT , Service support , ADDENDUM: 10/28/18521 IMPRESSION: Patient is cleared for MRI. Electronically Signed: Richard Smith MD at 5:14 EDT , Service support , ADDENDUM: 10/28/1828 IMPRESSION: 1. No carotid artery dissection or thrombus. 2. Mild bilateral carotid bulb atherosclerosis without hemodynamically significant stenosis. 3. SUSPICIOUS ADENOPATHY of the mediastinum, incompletely imaged. 4. ESOPHAGEAL WALL THICKENING SUSPICIOUS FOR NEOPLASM. 5. Degenerative changes of the cervical spine. Electronically Signed: Guero Noe MD at 16:46 EDT , Service support , ADDENDUM: 10/28/18527 IMPRESSION: Patient is cleared for MRI. Electronically Signed: Richard Smith MD at 5:14 EDT , Service support , Neck CTA 10/27/18 15:58 IMPRESSION: 1. No carotid artery dissection or thrombus. 2. Mild bilateral carotid bulb atherosclerosis without hemodynamically significant stenosis. 3. SUSPICIOUS ADENOPATHY of the mediastinum, incompletely imaged. 4. ESOPHAGEAL WALL THICKENING SUSPICIOUS FOR NEOPLASM. 5. Degenerative changes of the cervical spine. Electronically Signed: Guero Noe MD at 16:46 EDT , Service support , ADDENDUM: 10/28/18521 IMPRESSION: Patient is cleared for MRI. Electronically Signed: Richard Smith MD at 5:14 EDT , Service support , Brain CT 10/27/18 15:59 IMPRESSION: 1. No acute intracranial hemorrhage or mass effect. 2. Central parenchymal volume loss. White matter changes that are nonspecific but most commonly associated with chronic small vessel ischemic disease. 3. Chronic sinusitis. N.B. : The above information has been verbally conveyed by Guero Noe MD to Gray Lam MD, on 10/27/2018 16:31:44 (ET). Electronically Signed: Guero Noe MD at 16:33 EDT , Service support , ADDENDUM: 10/27/18 1640 IMPRESSION: 1. No acute intracranial hemorrhage or mass effect. 2. Central parenchymal volume loss. White matter changes that are nonspecific but most commonly associated with chronic small vessel ischemic disease. 3. Chronic sinusitis. N.B. : The above information has been verbally conveyed by Guero Noe MD to Gray Lam MD, on 10/27/2018 16:31:44 (ET). Electronically Signed: Guero Noe MD at 16:33 EDT , Service support , Chest X-Ray 10/27/18 15:59 IMPRESSION: Mass density at the left lung base with potential cavitation. Chest CT recommended. Electronically Signed: Guero Noe MD at 16:35 EDT , Service support , Brain MRI 10/28/18 09:00 IMPRESSION: 1. Senescent changes with no evidence of acute intracranial bleed, mass or ischemia. 2. Right inferior skull base appeared muscular infiltrating lesion worrisome for underlying sarcoma with metastatic disease not excluded. There is likely infiltration of the right facial nerve and stylomastoid foramen infiltration. Recommend dedicated skull base imaging with thin slice postcontrast SPGR T1 with diffusion imaging for further assessment and analysis. Recommend ENT consultation for definitive tissue assessment. Electronically Signed: Kingsley Penn DO at 16:00 EDT , Service support , Chest CT 10/29/18 05:55 I personally reviewed these images and concur with the reported findings IMPRESSION: 1. 5 cm in length suspicious mural lesion of the upper thoracic esophagus. 2. Several left lower lobe lesions measuring approximately 10.4 cm and 1.6 cm respectively, compatible with malignant tumor. 3. 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 4. Probable hepatic metastases. 5. Cholelithiasis. Individualized dose optimization techniques were used for this CT. 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 Plan: 1. EGD and biopsy any mucosal lesion. 2. CT-guided liver lesion biopsy. 3. Full CT of the abdomen and pelvis and a bone scan. 4. Follow-up in the outpatient cancer clinic in 1 week Patient was seen with his , impression and plan discussed. They are both aware of the clinical high suspicion for a widely metastatic malignancy. Medications: Prescriptions This Visit Medication Instructions Recorded Aspirin 325 mg PO DAILY@0800 10/27/18 Atorvastatin Calcium 40 mg PO QHS 10/27/18 Flaxseed Oil [Flax Oil] 1,000 mg PO DAILY 10/27/18 Metoprolol Tartrate 50 mg PO BID 10/27/18 Sour Baez Extract [Tart Baez 1,000 mg PO QHS 10/27/18 Extract] Turmeric 400 mg PO DAILY 10/27/18 Vitamin B Complex [Balance B-50] 1 each PO DAILY 10/27/18 Medications Added to Medication List This Visit Category Date Time Status predniSONE tablet Med 10/30/18 08:00 Active 60 mg PO DAILYCM Primary Care Provider: Donald Cohen MD Referring Provider: Bakari Carbajal MD
--- NOTE | 2018-10-29 16:52 | CON.PCM_ITS ---
- Problem List (1) Esophageal mass Status: Acute (2) Left lung mass Status: Acute Comment: Recent diagnosis (3) Bone lesion Status: Acute (4) Lesion of liver Status: Acute (5) Weight loss, non-intentional Status: Acute (6) Facial palsy Status: Acute Consult Referring Physician: Hospitalist service Consult Results: Clinically suspect widely disseminated malignancy of unknown primary Subjective Date of Service:: 10/29/18 Chief Complaint: facial Palsy History of Present Illness: Patient is a 78-year-old male ex-smoker and ex-excessive alcohol consumer was in his usual state of health until 2017 when he experienced persistent cough, occasional hemoptysis, anorexia and unexplained weight loss. More recently he experienced painless dysphagia and regurgitation of undigested food. He was scheduled for outpatient workup after the discovery of a lung mass when he presented to the emergency room with a new onset right facial palsy. CT scans of the chest including the upper portion of the abdomen showed a mass lesion in the thoracic esophagus, mediastinal adenopathy, multiple masses predominantly in the left lung, and multiple lesions in the liver although radiologically most consistent with a metastatic malignancy. Brain imaging showed no intraparenchymal brain metastases however there is a mass bony lesion at the right facial nerve exit foramen in the base of the skull Past Medical History: Chronic Problems Hypertension (Chronic) Borderline type 2 diabetes mellitus (Chronic) Dyslipidemia (Chronic) Coronary artery disease (Chronic) Past Medical/Surgical History: Past Medical History - Most Recent Inpatient Visit Past Medical History Start: 10/27/18 18:55 Text: Status: Complete Freq: ONCE Protocol: Document 10/27/18 19:48 [facility] (Rec: 10/27/18 19:58 [facility] [id number]) BMI Required to complete PMH What is Patient's BMI 21.4 Past Medical History Unable History Recalled No Query Text:Pt Unable/Family Not Present Neurologic Medical History Hx Stroke/TIA No Hx Dementia/Alzheimer's No Hx Parkinson's Disease No Hx Seizures No Hx Multiple Sclerosis No Hx Migraines No Cardiac Medical History VTE Present on Admission No Hx of Deep Vein Thrombosis/VTE/PE No Hx Hypertension Yes Hx Chest Pain/Angina Yes Hx Heart Attack Yes Hx Cardiac Surgery/Stents/Etc. Yes Hx Heart Failure No Hx Pacemaker/AICD No Hx Irregular Heartbeat and/or Afib No Hx Anticoagulant Therapy No Query Text:(Coumadin, Aspirin, Plavix, Xarelto, etc.) Hx Pain in Legs when Walking/Leg Cramps Yes Respiratory Medical History Hx COPD No Hx Emphysema No Hx Smoking Yes Smoking Status Former smoker Hx Tobacco Use in last 12 months No Hx Sleep Apnea No Do you snore loudly (louder than talking No or can be heard through closed doors)? Do you often feel tired/ fatigued/ No sleepy during daytime? Has anyone observed you stop breathing No during sleep? STOP Results Negative GI Medical History Hx Ulcer No Hx Hepatitis No Hx Cirrhosis No Hx GI Bleed No Hx Unplanned Weight Loss Yes Genitourinary Medical History Indwelling Catheter in Place on Arrival/ No Admission Hx Renal Disease No Hx Dialysis No Musculoskeletal History Hx Arthritis Yes Hx Rheumatoid Arthritis No Endocrine Medical History Hx Diabetes Yes Hx Thyroid Disease No Hematologic Medical History Hx of Blood Transfusion No Hx of Transfusion in last 3 Months No Ever experience any problems with No transfusion(s)? Hx of Preganancy in last 3 Months N/A Nurse Filling Out Transfusion & [facility] Questions: Date: 10/27/18 Time: 19:56 Psycho/Social Medical History Hx Depression No Hx Anxiety No Hx Behavior Disorder No Hx Alcohol Use Yes: 1-2 beers daily Hx Substance Use No Other Medical History Hx Blood Disorders No Hx Anemia No Hx Cancer No Hx Drug Resistant Organism No Wound/Pressure Injury Present on Arrival No /Admission Query Text:If yes, chart assessment in Shift/Clinical Findings Central Line/PICC/VAD Present on Arrival No /Admission Antibiotics within last 7 days? No Methicillin Resistant Staphylococcus aureus Screening Active MRSA No Risk for Readmission Number of Risk Factors 5 At Risk for Readmission Patient is At Risk For Readmission Patient is eligible for Call Back Y Paternal Family History: Cancer - Patient does not know which cancer, COPD Maternal Family History: No pertinent history - Social History Lives: Spouse/ Significant Other Smoking Status: Former smoker Tobacco Use: - - Ex-Smoker Alcohol: Heavy - in the past, at present 1-2 beers Allergies/Adverse Reactions: Allergy/AdvReac Type Severity Reaction Status Date / Time lorazepam [From Ativan] Allergy Other Verified 10/27/18 15:54 Penicillins [PCN] Allergy Unknown Verified 10/27/18 15:54 Review of Systems Constitutional:: Reports: Weakness, Fatigue, Weight loss, Appetite change. Denies: Fever, Sweats, Chills Cardiovascular:: Reports: Dyspnea on exertion. Denies: Chest pain, Palpitations, Orthopnea, PND, Shortness of breath Respiratory: Reports: Cough, Hemoptysis, Shortness of breath upon exertion. Denies: Shortness of Breath, Wheezing Gastrointestinal:: Reports: Dysphagia. Denies: Abdominal pain, Nausea, Vomiting, Diarrhea, Constipation, Hematochezia Genitourinary: Denies: Dysuria, Hematuria, 15, Flank pain Musculoskeletal:: Denies: Back pain, Myalgia, Arthralgia Skin: Denies: Rash, Skin Changes, Wounds Neurological:: Reports: Paralysis - Right side of face. Denies: Headache, Dizziness, Visual changes, Tinnitus, Hearing loss Psychiatric: Reports: Anxiety. Denies: Depression, Homicidal Ideations, Suicidal Ideations Vital Signs Height 5 ft 8 in Weight: 65.5 kg Weight in Pounds 144.4 lbs Pulse Ox 95 Temperature 97.5 F Pulse Rate 61 Respiratory Rate 20 Blood Pressure 110/68 Blood Pressure Position Semi-Fowlers - Physical Exam General: Alert, Oriented x3, No apparent distress, - - Cachectic, ECOG 2 HEENT: Atraumatic, PERRLA, EOMI, Normocephalic, - - Right face paralysis Oropharynx:: Dry mucosa Neck:: Supple, Trachea midline. Negative for: JVD, bilateral Cardiac:: Regular rate, Regular rhythm, Normal S1, Normal S2. Negative for: Murmur Lungs: Clear to auscultation, Diminished, Excusion symmetrical. Negative for: Rhonchi, Wheezes Abdomen:: Soft, Non-tender, Non-distended. Negative for: Hepatosplenomegaly Extremities:: Negative for: Cyanosis, Edema Neurological: Facial Droop - Right facial paralysis, - - No extremities weakness Skin:: Negative for: Lesions, Rash, Petechiae, Ecchymosis Psychiatric:: Appropriate affect, Euthymic Lymphatics:: Negative for: Cervical lymphadenopathy, Supraclavicular lymphadenopathy Laboratory Data: Laboratory Tests CBC, basic metabolic panel and calcium reviewed in EMR Diagnostic Data: Diagnostic Data Head CTA 10/27/18 15:58 IMPRESSION: 1. No carotid artery dissection or thrombus. 2. Mild bilateral carotid bulb atherosclerosis without hemodynamically significant stenosis. 3. SUSPICIOUS ADENOPATHY of the mediastinum, incompletely imaged. 4. ESOPHAGEAL WALL THICKENING SUSPICIOUS FOR NEOPLASM. 5. Degenerative changes of the cervical spine. Electronically Signed: Guero Noe MD at 16:46 EDT , Service support , ADDENDUM: 10/28/18521 IMPRESSION: Patient is cleared for MRI. Electronically Signed: Richard Smtih MD at 5:14 EDT , Service support , ADDENDUM: 10/28/1828 IMPRESSION: 1. No carotid artery dissection or thrombus. 2. Mild bilateral carotid bulb atherosclerosis without hemodynamically significant stenosis. 3. SUSPICIOUS ADENOPATHY of the mediastinum, incompletely imaged. 4. ESOPHAGEAL WALL THICKENING SUSPICIOUS FOR NEOPLASM. 5. Degenerative changes of the cervical spine. Electronically Signed: Guero Noe MD at 16:46 EDT , Service support , ADDENDUM: 10/28/18527 IMPRESSION: Patient is cleared for MRI. Electronically Signed: Richard Smith MD at 5:14 EDT , Service support , Neck CTA 10/27/18 15:58 IMPRESSION: 1. No carotid artery dissection or thrombus. 2. Mild bilateral carotid bulb atherosclerosis without hemodynamically significant stenosis. 3. SUSPICIOUS ADENOPATHY of the mediastinum, incompletely imaged. 4. ESOPHAGEAL WALL THICKENING SUSPICIOUS FOR NEOPLASM. 5. Degenerative changes of the cervical spine. Electronically Signed: Guero Noe MD at 16:46 EDT , Service support , ADDENDUM: 10/28/18521 IMPRESSION: Patient is cleared for MRI. Electronically Signed: Richard Smith MD at 5:14 EDT , Service support , Brain CT 10/27/18 15:59 IMPRESSION: 1. No acute intracranial hemorrhage or mass effect. 2. Central parenchymal volume loss. White matter changes that are nonspecific but most commonly associated with chronic small vessel ischemic disease. 3. Chronic sinusitis. N.B. : The above information has been verbally conveyed by Guero Noe MD to Gray Lam MD, on 10/27/2018 16:31:44 (ET). Electronically Signed: Guero Noe MD at 16:33 EDT , Service support , ADDENDUM: 10/27/18 1640 IMPRESSION: 1. No acute intracranial hemorrhage or mass effect. 2. Central parenchymal volume loss. White matter changes that are nonspecific but most commonly associated with chronic small vessel ischemic disease. 3. Chronic sinusitis. N.B. : The above information has been verbally conveyed by Guero Noe MD to Gray Lam MD, on 10/27/2018 16:31:44 (ET). Electronically Signed: Guero Noe MD at 16:33 EDT , Service support , Chest X-Ray 10/27/18 15:59 IMPRESSION: Mass density at the left lung base with potential cavitation. Chest CT recommended. Electronically Signed: Guero Noe MD at 16:35 EDT , Service support , Brain MRI 10/28/18 09:00 IMPRESSION: 1. Senescent changes with no evidence of acute intracranial bleed, mass or ischemia. 2. Right inferior skull base appeared muscular infiltrating lesion worrisome for underlying sarcoma with metastatic disease not excluded. There is likely infiltration of the right facial nerve and stylomastoid foramen infiltration. Recommend dedicated skull base imaging with thin slice postcontrast SPGR T1 with diffusion imaging for further assessment and analysis. Recommend ENT consultation for definitive tissue assessment. Electronically Signed: Kingsley Penn DO at 16:00 EDT , Service support , Chest CT 10/29/18 05:55 I personally reviewed these images and concur with the reported findings IMPRESSION: 1. 5 cm in length suspicious mural lesion of the upper thoracic esophagus. 2. Several left lower lobe lesions measuring approximately 10.4 cm and 1.6 cm respectively, compatible with malignant tumor. 3. 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 4. Probable hepatic metastases. 5. Cholelithiasis. Individualized dose optimization techniques were used for this CT. 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 Plan: 1. EGD and biopsy any mucosal lesion. 2. CT-guided liver lesion biopsy. 3. Full CT of the abdomen and pelvis and a bone scan. 4. Follow-up in the outpatient cancer clinic in 1 week Patient was seen with his , impression and plan discussed. They are both aware of the clinical high suspicion for a widely metastatic malignancy. Medications: Prescriptions This Visit Medication Instructions Recorded Aspirin 325 mg PO DAILY@0800 10/27/18 Atorvastatin Calcium 40 mg PO QHS 10/27/18 Flaxseed Oil [Flax Oil] 1,000 mg PO DAILY 10/27/18 Metoprolol Tartrate 50 mg PO BID 10/27/18 Sour Baez Extract [Tart Baez 1,000 mg PO QHS 10/27/18 Extract] Turmeric 400 mg PO DAILY 10/27/18 Vitamin B Complex [Balance B-50] 1 each PO DAILY 10/27/18 Medications Added to Medication List This Visit Category Date Time Status predniSONE tablet Med 10/30/18 08:00 Active 60 mg PO DAILYCM Primary Care Provider: Donald Cohen MD Referring Provider: Bakari Carbajal MD
[2018-10-29] MEDS: Atorvastatin Calcium 40 MG Tablet PO (21:46)
[2018-10-30] VITALS (18 sets, daily range): BP systolic 108–147; BP diastolic 67–82; PULSE 47–171; RESP 16–18; TEMP 36.3–37.4; O2SAT 92–98
--- NOTE | 2018-10-30 | IMM_PTH ---
PATIENT: BRIANNA TAVARES LOC: PCU U#:[id number] AGE/SX: 78/M ROOM: [facility] RE10/28/[address]: Dr. Brittaney Sharpe MD : 1940 BED: 1 DIS: 10/31/2018 SPEC #: [id number] RECD: 10/31/18 12:31 STATUS: MAIKEL REQ #: [id number] LIBBY: 10/30/18 00:[address]: Refugio Leo DEPT: IMMUNOHISTOCHEMISTRY RECD BY: Bouchra Cooney ENTERED: 10/31/18 12:34 SP TYPE: IMMUNO OTHR DR: MD Dr. Kleber Sanders MD Dr. David R Lance, DO Dr. Darrell Widmer, MD Dr. Eric Grimes, MD Dr. Mansour Isckarus, MD Dr. Prakash Chand, MD Dr. Ramnath S Ramanathan, MD Tissues: Esophagus, NOS Procedures: CK14 (add) CK5-6 (add) KI-67 (add) P16 (add) P53 (add) Pankeratin (initial) P40 (add) PHYSICIAN & INSTITUTION [place] [address] SPECIMEN INFORMATION: Tissue Source: Biopsy of esophageal mass Clinical Info: Esophageal mass Specimen Number: [id number] CPT code: 60209, 09239 x6 METHODOLOGY: Deparaffinized sections of prefer/formalin-fixed tissue or PAP/DQ stained slides are incubated with monoclonal/polyclonal antibodies/oligonucleotide probes. Localization is made via biotin free immunoperoxidase method. Appropriate controls are performed and reacted as expected. Results on target cell population are indicated in the following table: RESULTS: ANTIBODY / CLONE RESULT AE1-3 (AE1/AE3/PCK26) positive P40 (BC28) positive CK5-6 (D5 & 1684) positive CK14 (LL002) positive P16 (E6H4) negative Ki-67 (30-9) positive, 85% P53 (DO-7) negative These tests were developed and their performance characteristics determined by [facility]. They may not have been cleared or approved by the U.S. Food and Drug Administration. The FDA has determined that such clearance or approval is not necessary. INTERPRETATION: Esophageal mass, biopsy: Invasive squamous cell carcinoma. AM:parker 11/01/18
--- NOTE | 2018-10-30 05:46 | NURSING ---
Called report to Ashlie in endo
--- NOTE | 2018-10-30 06:00 | CT_ITS ---
STUDY: CT ABDOMEN AND PELVIS WITH CONTRAST REASON FOR EXAM: Male, 78 years old. LUNG AND LIVER AND ESOPHAGEAL MASSES RADIATION DOSAGE (If Supplied By Facility): CTDIvol = ( 13.57 ) mGy, DLP = ( 559.22 ) mGycm TECHNIQUE: Transaxial images were obtained from the dome of the diaphragm to the symphysis pubis without oral contrast. Isovue 370 80ML IV was administered. Sagittal and coronal images were reconstructed. Individualized dose optimization techniques were used for this CT. COMPARISON: None. FINDINGS: There are 2 masses in the left lung lower lobe measuring respectively 9.6 and 1.6 cm consistent with metastatic lesions. The visualized portions of the heart are within normal limits. Multiple decrease attenuation lesions are seen in the liver the largest is in segment #3 measures 3.7 cm have nonspecific appearance they may represent cysts. There are multiple gallstones. Normal spleen. Normal pancreas. Normal bilateral adrenal glands. Normal right kidney. Normal left kidney. Normal visualized stomach. Normal small intestine. Normal colon. The appendix is visualized and appears normal. Normal abdominal aorta. Normal inferior vena cava. Normal retroperitoneum. Normal urinary bladder. Normal abdominal wall. There are diffuse degenerative changes of the visualized lumbar spine. CT/Abdomen/Pelvis W IV Cont ONLY IMPRESSION: Multiple liver lesions the largest measures 3.7 cm have nonspecific appearance, for which further evaluation by MRI can be helpful to exclude metastatic lesions. Cholelithiasis. Electronically Signed: Annia Romero, at 11:18 EDT Tel , Service support ,
[2018-10-30 06:39] LABS: Absolute Lymphocyte Count 2.04 X10^3/ul (0.83-4.51); Absolute Neutrophil Count 8.8 X10^3/uL (2.0-7.7); Basophil# 0.01 X10^3/uL; Basophil% 0.1 % (0-1); Hematocrit 42.9 % (40-54); Hemoglobin 13.8 g/dl (13.0-16.5); Lymphocyte # 2.04 X10^3/ul (4.0); Lymphocyte % 17.1 % (19-41); Mean Corp Hgb Conc 32.2 g/gl (32-36); Mean Corpuscular Hgb 27.1 pg (27.0-32.0); Mean Corpuscular Volume 84.1 fL (80-94); Monocyte# 1.03 X10^3/uL; Monocyte% 8.6 % (0-10); Neutrophil # 8.81 X10^3/uL (2.7-7.7); Neutrophil % 73.9 % (47-70); Platelet Count 334 K/mm3 (150-450); RBC Distribution Width CV 15.2 % (11.6-14.6); RBC Distribution Width SD 46.6 fl (35.1-43.9); White Blood Count 11.9 K/mm3 (4.4-11.0)
[2018-10-30 06:40] LABS: POSITIVE COUNT NO; POSITIVE DIFFERENTIAL NO; POSITIVE MORPHOLOGY NO
[2018-10-30 06:57] LABS: Anion Gap 8 (5-15); BUN 12 mg/dL (7-18); BUN/Creat Ratio 19.6 RATIO (10-20); Calcium,Total 9.7 mg/dL (8.5-10.1); Chloride 99 mmol/L (98-107); Creatinine, Serum 0.61 mg/dL (0.70-1.30); EST Glomerular Filtration Rate 136 mL/min (>60); Est Glom Filt Rate - Afr Amer 164 mL/min (>60); Estimated Creatinine Clearance 57.31 ml/min; Glucose 85 mg/dL (74-106); Potassium 4.1 mmol/L (3.5-5.1); Sodium Level 136 mmol/L (136-145)
--- NOTE | 2018-10-30 07:00 | EGD_PTH ---
PATIENT: BRIANNA TAVARES LOC: PCU U#:[id number] AGE/SX: 78/M ROOM: [facility] RE10/28/[address]: Dr. Brittaney Sharpe MD : 1940 BED: 1 DIS: 10/31/2018 SPEC #: [id number] RECD: 10/30/18 09:00 STATUS: MAIKEL REAvinash #: [id number] LIBBY: 10/30/18 07:[address]: Refugio Leo DEPT: SURGICAL PATHOLOGY RECD BY: Benigno Garland ENTERED: 10/30/18 13:02 SP TYPE: EGD BIOPSY OTHR DR: MD Dr. Kleber Sanders MD Dr. Darrell Widmer, MD Dr. Eric Grimes, MD Dr. Mansour Isckarus, MD Dr. Prakash Chand, MD Dr. 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 AM:parker 10/31/18 COMMENT Immunohistochemistry ([id number]) supports the above diagnosis. Case has been reviewed in consultation with Dr. Leggett who concurs with the above diagnosis. IDC:[email or web address] MICROSCOPIC DESCRIPTION Slides are reviewed. GROSS DESCRIPTION Received in fixative is one container labeled with the patient's name and designated biopsy of esophageal mass. The specimen consists of multiple irregular fragments of light davison soft tissue that in aggregate measure 0.7 x 0.5 x 0.1 cm. The specimen is totally submitted in one cassette. / WINNIE:parker 10/30/18 TC:0 CPT: 84227
--- NOTE | 2018-10-30 07:34 | OP.ENDO_ITS ---
10/30/2018 [facility] Re : Upper GI endoscopy procedure for Braden Robertor Vicki This procedure was performed on Tuesday, October 30, 2018. My impressions and recommendations are as follows: Impressions : - Partially obstructing, likely malignant esophageal tumor was found in the upper third of the esophagus. Biopsied. - Small paraesophageal hernia. No specimens collected. - Normal examined duodenum. No specimens collected. Recommendations : - [facility]. - Full liquid diet indefinitely. - Continue present medications. - Await pathology results. - Repeat upper endoscopy at appointment to be scheduled to evaluate the response to therapy. - The findings and recommendations were discussed with the referring physician. My findings are described in the full procedure note, which is enclosed. If I can be of further assistance, please feel free to contact me at Doctor phone number(s): , Fax: [phone], Work: . Sincerely, MD Refugio Lobato MD 10/30/2018 7:33:42 AM This report has been signed electronically.
--- NOTE | 2018-10-30 08:12 | NURSING ---
pt back from [facility]
--- NOTE | 2018-10-30 09:20 | EKG12_ITS ---
Test Reason : SVT Blood Pressure : / mmHG Vent. Rate : 166 BPM Atrial Rate : 088 BPM P-R Int : 000 ms QRS Dur : 086 ms QT Int : 298 ms P-R-T Axes : 000 059 130 degrees QTc Int : 495 ms Supraventricular tachycardia Marked ST abnormality, possible inferolateral subendocardial injury Abnormal ECG When compared with ECG of 27-OCT-2018 16:18, Significant changes have occurred Confirmed by ALLIE ALVARADO, NICHO ([id number]), editor department OPAL MARTINEZ ([id number]) on 11/02/2018 9:39:26 AM Referred By: Bakari Carbajal Confirmed By:NICHO KELLEY MD
[2018-10-30] MEDS: Aspirin 325 MG Tablet PO (09:39)
[2018-10-30] MEDS: predniSONE 20 MG Tablet 50 MG PO (09:40)
[2018-10-30] MEDS: Vitamin B Comp W-C Capsule 1 CAP PO (09:42)
--- NOTE | 2018-10-30 09:51 | PN_ITS ---
Patient Problems: Active and Suspected Problems Weight loss, non-intentional (Acute) Bone lesion (Acute) Lesion of liver (Acute) Castillo's palsy (Acute) Esophageal mass (Acute) Subjective: Patient did okay overnight. Patient remains on room air, but still has a cough productive of joseph sputum with streaks of blood. Patient did have his EGD this morning with notation of a fungating lesion that is circumferential in the upper esophagus. Patient denies any pain at this time. No new neurologic symptoms have been reported overnight by nursing. - Physical Exam General: Alert, Oriented x3, Cooperative, No apparent distress, - - Spoke with patient's at the bedside. No conversational dyspnea appreciated. HEENT: Atraumatic, PERRLA, EOMI, - - Slight scleral injection without icterus Oral: Moist Mucosa, No Gingival or Mucosal Lesions/ Ulcerations Neck: Supple, No JVD, No Nodes, Trachea Midline Lungs: No wheeze, No rales, Diminished - Left base, Rhonchi - Improved with cough, - - Slight dullness to percussion at the left base Cardiovascular: Regular rate, Regular Rhythm, Normal S1, Normal S2, No murmurs, No rub noted, No Gallop Abdomen: Bowel Sounds Present, Soft, Non Tender, Non-Distended Extremities: No clubbing, No cyanosis, No edema Skin: - - No significant change compared to previous Musculoskeletal: No Tenderness to Palpation of Joints or Extremities Lymphatic: No Cervical, Supraclavicular, or Inguinal Adenopathy Neurological: - - No change from previous. Continues to have facial droop Psych/Mental Status: Normal Affect, Appropriate Vital Signs Temp Pulse Resp BP Pulse Ox 37.1 C 171 H 18 114/68 92 10/30/18 09:30 10/30/18 09:30 10/30/18 09:30 10/30/18 09:30 10/30/18 09:30 Oxygen Flow Rate (L/min) 1 Oxygen Delivery Method Room Air Weight: 65.5 kg Body Mass Index (BMI) 21.9 Intake and Output for Last 24 Hours 10/28/18 10/29/18 10/30/18 23:59 23:59 23:59 Intake Total 1478 / 1478 940 / 940 200 / 200 Output Total 1135 / 1135 1200 / 1200 550 / 550 Balance 343 / 343 -260 / -260 -350 / -350 Laboratory Tests Past 24 Hrs 10/30/18 10/30/18 06:28 06:28 WBC 11.9 H RBC 5.10 Hgb 13.8 Hct 42.9 MCV 84.1 MCH 27.1 MCHC 32.2 RDW 15.2 H RDW Differential 46.6 H Plt Count 334 MPV 9.0 Immature Gran % (Auto) 0.300 Neut % (Auto) 73.9 H Lymph % (Auto) 17.1 L [place] % (Auto) 8.6 Eos % (Auto) 0.0 Baso % (Auto) 0.1 Absolute Neuts (auto) 8.8 H Absolute Lymphs (auto) 2.04 Total Counted Not Reportable Sodium 136 Potassium 4.1 Chloride 99 Carbon Dioxide 29.0 Anion Gap 8 BUN 12 Creatinine 0.61 L Estim Creat Clear Calc 57.31 Est GFR (MDRD) Af Amer 164 Est GFR (MDRD) Non-Af 136 BUN/Creatinine Ratio 19.6 Glucose 85 Calcium 9.7 Medical Necessity - Tobacco Use Smoking Status: Former smoker Tobacco Use: - - Ex-Smoker Assessment/Plan All Active Problems Weight loss, non-intentional (Acute) Bone lesion (Acute) Lesion of liver (Acute) Castillo's palsy (Acute) Esophageal mass (Acute) RECOMMENDATIONS: 1. Conservative therapy for productive cough 2. Consider modified diet 3. Initiate empiric antibiotics if patient develops fever or other constitutional symptoms 4. PRN albuterol may be helpful 5. No need to discontinue aspirin from a pulmonary perspective IMPRESSIONS: 1. Lung mass EGD is suggestive of esophageal tumor. This would likely indicate lung lesion is from esophageal origin. Patient does have significant mediastinal lymphadenopathy, which also is consistent with esophageal tumor. Patient does have some liver lesions. Clinical suspicion is an element of obstruction given the size of the mass in the left upper lobe leading to productive cough. Unclear if the blood is coming from the upper esophagus versus left lower lobe lesion. Patient tolerating room air. Poor long-term prognosis. Oncology is following. Defer to oncology if palliative measures would be appropriate. 2. Castillo's palsy/coronary artery disease/hypertension/type 2 diabetes mellitus/advanced age Complicates care, management, recovery and prognosis. Code Visit Inpatient E&M: 47561 Subs Hosp L2
[2018-10-30] MEDS: Metoprolol Tartrate 50 MG Tablet PO ×2 (10:43→21:22)
--- NOTE | 2018-10-30 15:54 | ONC.PN.INPT ---
- Problem List (1) Esophageal mass Status: Acute (2) Left lung mass Status: Acute Comment: Recent diagnosis (3) Bone lesion Status: Acute (4) Lesion of liver Status: Acute (5) Weight loss, non-intentional Status: Acute (6) Facial palsy Status: Acute Subjective Date of Service:: 10/30/18 facial Palsy Patient is a 78-year-old male ex-smoker and ex-excessive alcohol consumer was in his usual state of health until 2017 when he experienced persistent cough, occasional hemoptysis, anorexia and unexplained weight loss. More recently he experienced painless dysphagia and regurgitation of undigested food. He was scheduled for outpatient workup after the discovery of a lung mass when he presented to the emergency room with a new onset right facial palsy. CT scans of the chest including the upper portion of the abdomen showed a mass lesion in the thoracic esophagus, mediastinal adenopathy, multiple masses predominantly in the left lung, and multiple lesions in the liver radiologically most consistent with a metastatic malignancy. Brain imaging showed no intraparenchymal brain metastases however there is a mass bony lesion at the right facial nerve exit foramen in the base of the skull. 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 Biopsied. Past Medical History: Chronic Problems Hypertension (Chronic) Borderline type 2 diabetes mellitus (Chronic) Dyslipidemia (Chronic) Coronary artery disease (Chronic) Past Medical History - Most Recent Inpatient Visit Past Medical History Start: 10/27/18 18:55 Text: Status: Complete Freq: ONCE Protocol: Document 10/27/18 19:48 [facility] (Rec: 10/27/18 19:58 [facility] [id number]) BMI Required to complete PMH What is Patient's BMI 21.4 Past Medical History Unable History Recalled No Query Text:Pt Unable/Family Not Present Neurologic Medical History Hx Stroke/TIA No Hx Dementia/Alzheimer's No Hx Parkinson's Disease No Hx Seizures No Hx Multiple Sclerosis No Hx Migraines No Cardiac Medical History VTE Present on Admission No Hx of Deep Vein Thrombosis/VTE/PE No Hx Hypertension Yes Hx Chest Pain/Angina Yes Hx Heart Attack Yes Hx Cardiac Surgery/Stents/Etc. Yes Hx Heart Failure No Hx Pacemaker/AICD No Hx Irregular Heartbeat and/or Afib No Hx Anticoagulant Therapy No Query Text:(Coumadin, Aspirin, Plavix, Xarelto, etc.) Hx Pain in Legs when Walking/Leg Cramps Yes Respiratory Medical History Hx COPD No Hx Emphysema No Hx Smoking Yes Smoking Status Former smoker Hx Tobacco Use in last 12 months No Hx Sleep Apnea No Do you snore loudly (louder than talking No or can be heard through closed doors)? Do you often feel tired/ fatigued/ No sleepy during daytime? Has anyone observed you stop breathing No during sleep? STOP Results Negative GI Medical History Hx Ulcer No Hx Hepatitis No Hx Cirrhosis No Hx GI Bleed No Hx Unplanned Weight Loss Yes Genitourinary Medical History Indwelling Catheter in Place on Arrival/ No Admission Hx Renal Disease No Hx Dialysis No Musculoskeletal History Hx Arthritis Yes Hx Rheumatoid Arthritis No Endocrine Medical History Hx Diabetes Yes Hx Thyroid Disease No Hematologic Medical History Hx of Blood Transfusion No Hx of Transfusion in last 3 Months No Ever experience any problems with No transfusion(s)? Hx of Preganancy in last 3 Months N/A Nurse Filling Out Transfusion & [facility]ALE Questions: Date: 10/27/18 Time: 19:56 Psycho/Social Medical History Hx Depression No Hx Anxiety No Hx Behavior Disorder No Hx Alcohol Use Yes: 1-2 beers daily Hx Substance Use No Other Medical History Hx Blood Disorders No Hx Anemia No Hx Cancer No Hx Drug Resistant Organism No Wound/Pressure Injury Present on Arrival No /Admission Query Text:If yes, chart assessment in Shift/Clinical Findings Central Line/PICC/VAD Present on Arrival No /Admission Antibiotics within last 7 days? No Methicillin Resistant Staphylococcus aureus Screening Active MRSA No Risk for Readmission Number of Risk Factors 5 At Risk for Readmission Patient is At Risk For Readmission Patient is eligible for Call Back Y Paternal Family History: Cancer - Patient does not know which cancer, COPD Maternal Family History: No pertinent history - Social History Lives: Spouse/ Significant Other Smoking Status: Former smoker Tobacco Use: - - Ex-Smoker Alcohol: Heavy - in the past, at present 1-2 beers Review of Systems Constitutional:: Reports: Weakness, Fatigue, Weight loss, Appetite change - Anorexia. Denies: Fever, Sweats, Chills Cardiovascular:: Reports: Dyspnea on exertion. Denies: Chest pain, Palpitations, Orthopnea, PND, Shortness of breath Respiratory: Reports: Cough, Hemoptysis, Shortness of breath upon exertion. Denies: Shortness of Breath, Wheezing Gastrointestinal:: Reports: Dysphagia. Denies: Abdominal pain, Nausea, Vomiting, Diarrhea, Constipation, Hematochezia Genitourinary: Denies: Dysuria, Hematuria, 15, Flank pain Musculoskeletal:: Denies: Back pain, Myalgia, Arthralgia Skin: Denies: Rash, Skin Changes, Wounds Neurological:: Reports: Paralysis - Right face. Denies: Headache, Dizziness, Visual changes, Tinnitus, Hearing loss Psychiatric: Denies: Anxiety, Depression, Homicidal Ideations, Suicidal Ideations Vital Signs Height 5 ft 8 in Weight: 65.5 kg Weight in Pounds 144.4 lbs Pulse Ox 97 Temperature 98.2 F Pulse Rate 67 Respiratory Rate 16 Blood Pressure [BP] 114/68 Blood Pressure 118/67 Blood Pressure Position [BP] Semi-Fowlers Blood Pressure Position Semi-Fowlers - Physical Exam General: Alert, Oriented x3, No apparent distress, - - Cachectic, ECOG 2-3 Laboratory Data: Laboratory Tests 10/30/18 10/30/18 Range/Units 06:28 06:28 WBC 11.9 H (4.4-11.0) K/mm3 RBC 5.10 (4.6-6.2) M/mm3 Hgb 13.8 (13.0-16.5) g/dl Hct 42.9 (40-54) % MCV 84.1 (80-94) fL MCH 27.1 (27.0-32.0) pg MCHC 32.2 (32-36) g/gl RDW 15.2 H (11.6-14.6) % RDW Differential 46.6 H (35.1-43.9) fl Plt Count 334 (150-450) K/mm3 MPV 9.0 (6.2-12.0) fl Immature Gran % (Auto) 0.300 (0.0-0.9) % Neut % (Auto) 73.9 H (47-70) % Lymph % (Auto) 17.1 L (19-41) % [place] % (Auto) 8.6 (0-10) % Eos % (Auto) 0.0 (0-5) % Baso % (Auto) 0.1 (0-1) % Absolute Neuts (auto) 8.8 H (2.0-7.7) X10^3/uL Absolute Lymphs (auto) 2.04 (0.83-4.51) X10^3/ul Total Counted Not Reportable Sodium 136 (136-145) mmol/L Potassium 4.1 (3.5-5.1) mmol/L Chloride 99 (98-107) mmol/L Carbon Dioxide 29.0 (21.0-32.0) mmol/L Anion Gap 8 (5-15) BUN 12 (7-18) mg/dL Creatinine 0.61 L (0.70-1.30) mg/dL Estim Creat Clear Calc 57.31 ml/min Est GFR (MDRD) Af Amer 164 (>60) mL/min Est GFR (MDRD) Non-Af 136 (>60) mL/min BUN/Creatinine Ratio 19.6 (10-20) RATIO Glucose 85 (74-106) mg/dL Calcium 9.7 (8.5-10.1) mg/dL Diagnostic Data: Diagnostic Data Head CTA 10/27/18 15:58 IMPRESSION: 1. No carotid artery dissection or thrombus. 2. Mild bilateral carotid bulb atherosclerosis without hemodynamically significant stenosis. 3. SUSPICIOUS ADENOPATHY of the mediastinum, incompletely imaged. 4. ESOPHAGEAL WALL THICKENING SUSPICIOUS FOR NEOPLASM. 5. Degenerative changes of the cervical spine. Electronically Signed: Guero Noe MD at 16:46 EDT , Service support , ADDENDUM: 10/28/18 05 IMPRESSION: Patient is cleared for MRI. Electronically Signed: Richard Smith MD at 5:14 EDT , Service support , ADDENDUM: 10/28/18 0528 IMPRESSION: 1. No carotid artery dissection or thrombus. 2. Mild bilateral carotid bulb atherosclerosis without hemodynamically significant stenosis. 3. SUSPICIOUS ADENOPATHY of the mediastinum, incompletely imaged. 4. ESOPHAGEAL WALL THICKENING SUSPICIOUS FOR NEOPLASM. 5. Degenerative changes of the cervical spine. Electronically Signed: Guero Noe MD at 16:46 EDT , Service support , ADDENDUM: 10/28/18 0528 IMPRESSION: Patient is cleared for MRI. Electronically Signed: Richard Smith MD at 5:14 EDT , Service support , Neck CTA 10/27/18 15:58 IMPRESSION: 1. No carotid artery dissection or thrombus. 2. Mild bilateral carotid bulb atherosclerosis without hemodynamically significant stenosis. 3. SUSPICIOUS ADENOPATHY of the mediastinum, incompletely imaged. 4. ESOPHAGEAL WALL THICKENING SUSPICIOUS FOR NEOPLASM. 5. Degenerative changes of the cervical spine. Electronically Signed: Guero Noe MD at 16:46 EDT , Service support , ADDENDUM: 10/28/18 0522 IMPRESSION: Patient is cleared for MRI. Electronically Signed: Richard Smith MD at 5:14 EDT , Service support , Brain CT 10/27/18 15:59 IMPRESSION: 1. No acute intracranial hemorrhage or mass effect. 2. Central parenchymal volume loss. White matter changes that are nonspecific but most commonly associated with chronic small vessel ischemic disease. 3. Chronic sinusitis. N.B. : The above information has been verbally conveyed by Guero Noe MD to Gray Lam MD, on 10/27/2018 16:31:44 (ET). Electronically Signed: Guero Noe MD at 16:33 EDT , Service support , ADDENDUM: 10/27/18 1640 IMPRESSION: 1. No acute intracranial hemorrhage or mass effect. 2. Central parenchymal volume loss. White matter changes that are nonspecific but most commonly associated with chronic small vessel ischemic disease. 3. Chronic sinusitis. N.B. : The above information has been verbally conveyed by Guero Noe MD to Gray Lam MD, on 10/27/2018 16:31:44 (ET). Electronically Signed: Guero Noe MD at 16:33 EDT , Service support , Chest X-Ray 10/27/18 15:59 IMPRESSION: Mass density at the left lung base with potential cavitation. Chest CT recommended. Electronically Signed: Guero Noe MD at 16:35 EDT , Service support , Brain MRI 10/28/18 09:00 IMPRESSION: 1. Senescent changes with no evidence of acute intracranial bleed, mass or ischemia. 2. Right inferior skull base appeared muscular infiltrating lesion worrisome for underlying sarcoma with metastatic disease not excluded. There is likely infiltration of the right facial nerve and stylomastoid foramen infiltration. Recommend dedicated skull base imaging with thin slice postcontrast SPGR T1 with diffusion imaging for further assessment and analysis. Recommend ENT consultation for definitive tissue assessment. Electronically Signed: Kingsley Penn DO at 16:00 EDT , Service support , Chest CT 10/29/18 05:55 IMPRESSION: 1. 5 cm in length suspicious mural lesion of the upper thoracic esophagus. 2. Several left lower lobe lesions measuring approximately 10.4 cm and 1.6 cm respectively, compatible with malignant tumor. 3. 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 4. Probable hepatic metastases. 5. Cholelithiasis. Individualized dose optimization techniques were used for this CT. at 9924 Reported and signed by: Rod Argueta MD Electronically Signed: Rod Argueta, at 7:23 EDT Tel , Service support , Bone Scan Nuclear Medicine 10/29/18 16:02 IMPRESSION: 1. The increase in radiopharmaceutical concentration visualized in the right proximal-mid humeral diaphysis is of uncertain etiology and may represent previous trauma-fracture. Plain film radiography correlation is recommended. 2. Degenerative arthritis appears expressed in the cervical spine and sacrum, bilateral shoulders, right hand. 3. There is no definitive typical scintigraphic evidence of diffuse axial skeletal metastatic disease on the current examination. Prominent soft tissue-cutaneous contamination artifact is visualized. Electronically Signed: Alexis Castle DO at 13:50 EDT Tel , Service support , ADDENDUM: 10/30/18 1457 ADDENDUM by Annia Romero MD on 10/30/18 at 1450 ADDENDUM There is increased uptake on the right side in the occipital bone and in the right mastoid bone consistent with metastatic lesion. Abdomen/Pelvis CT 10/30/18 06:00 IMPRESSION: Multiple liver lesions the largest measures 3.7 cm have nonspecific appearance, for which further evaluation by MRI can be helpful to exclude metastatic lesions. Cholelithiasis. 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 Patient has a terminal stage IV disease, is cachectic with a poor performance status and systemic chemotherapy would be more likely detrimental and I advise comfort measures only on the home hospice program. Plan: Patient was seen with his who was at his bedside, impression and plan discussed. Patient wishes to go home as soon as possible on the home hospice program. Biopsy of metastatic lesion (liver or lung) is of academic interest only and to be canceled as per patient request. Following the discussion at the bedside and with patient's permission I share the same information with the patient's daughter on the phone. Medications: Prescriptions This Visit Medication Instructions Recorded Aspirin 325 mg PO DAILY@0800 10/27/18 Atorvastatin Calcium 40 mg PO QHS 10/27/18 Flaxseed Oil [Flax Oil] 1,000 mg PO DAILY 10/27/18 Metoprolol Tartrate 50 mg PO BID 10/27/18 Sour Baez Extract [Tart Baez 1,000 mg PO QHS 10/27/18 Extract] Turmeric 400 mg PO DAILY 10/27/18 Vitamin B Complex [Balance B-50] 1 each PO DAILY 10/27/18 Medications Added to Medication List This Visit Category Date Time Status Adenosine [Adenocard] Med 10/30/18 09:35 Active 6 mg IV PRN PRN Metoprolol Tartrate [Lopressor (Beta Geno)] Med 10/30/18 10:30 Active 50 mg PO BID predniSONE tablet Med 10/30/18 08:00 Active 60 mg PO DAILY@0800 Primary Care Provider: Donald Cohen MD Referring Provider: Bakari Carbajal MD
--- NOTE | 2018-10-30 15:58 | PN_ITS ---
- Problem List (1) Esophageal mass Status: Acute (2) Left lung mass Status: Acute Comment: Recent diagnosis (3) Bone lesion Status: Acute (4) Lesion of liver Status: Acute (5) Weight loss, non-intentional Status: Acute (6) Facial palsy Status: Acute Subjective Date of Service:: 10/30/18 facial Palsy Patient is a 78-year-old male ex-smoker and ex-excessive alcohol consumer was in his usual state of health until 2017 when he experienced persistent cough, occasional hemoptysis, anorexia and unexplained weight loss. More recently he experienced painless dysphagia and regurgitation of undigested food. He was scheduled for outpatient workup after the discovery of a lung mass when he presented to the emergency room with a new onset right facial palsy. CT scans of the chest including the upper portion of the abdomen showed a mass lesion in the thoracic esophagus, mediastinal adenopathy, multiple masses predominantly in the left lung, and multiple lesions in the liver radiologically most consistent with a metastatic malignancy. Brain imaging showed no intraparenchymal brain metastases however there is a mass bony lesion at the right facial nerve exit foramen in the base of the skull. 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 Biopsied. Past Medical History: Chronic Problems Hypertension (Chronic) Borderline type 2 diabetes mellitus (Chronic) Dyslipidemia (Chronic) Coronary artery disease (Chronic) Past Medical History - Most Recent Inpatient Visit Past Medical History Start: 10/27/18 18:55 Text: Status: Complete Freq: ONCE Protocol: Document 10/27/18 19:48 [facility] (Rec: 10/27/18 19:58 [facility] [id number]) BMI Required to complete PMH What is Patient's BMI 21.4 Past Medical History Unable History Recalled No Query Text:Pt Unable/Family Not Present Neurologic Medical History Hx Stroke/TIA No Hx Dementia/Alzheimer's No Hx Parkinson's Disease No Hx Seizures No Hx Multiple Sclerosis No Hx Migraines No Cardiac Medical History VTE Present on Admission No Hx of Deep Vein Thrombosis/VTE/PE No Hx Hypertension Yes Hx Chest Pain/Angina Yes Hx Heart Attack Yes Hx Cardiac Surgery/Stents/Etc. Yes Hx Heart Failure No Hx Pacemaker/AICD No Hx Irregular Heartbeat and/or Afib No Hx Anticoagulant Therapy No Query Text:(Coumadin, Aspirin, Plavix, Xarelto, etc.) Hx Pain in Legs when Walking/Leg Cramps Yes Respiratory Medical History Hx COPD No Hx Emphysema No Hx Smoking Yes Smoking Status Former smoker Hx Tobacco Use in last 12 months No Hx Sleep Apnea No Do you snore loudly (louder than talking No or can be heard through closed doors)? Do you often feel tired/ fatigued/ No sleepy during daytime? Has anyone observed you stop breathing No during sleep? STOP Results Negative GI Medical History Hx Ulcer No Hx Hepatitis No Hx Cirrhosis No Hx GI Bleed No Hx Unplanned Weight Loss Yes Genitourinary Medical History Indwelling Catheter in Place on Arrival/ No Admission Hx Renal Disease No Hx Dialysis No Musculoskeletal History Hx Arthritis Yes Hx Rheumatoid Arthritis No Endocrine Medical History Hx Diabetes Yes Hx Thyroid Disease No Hematologic Medical History Hx of Blood Transfusion No Hx of Transfusion in last 3 Months No Ever experience any problems with No transfusion(s)? Hx of Preganancy in last 3 Months N/A Nurse Filling Out Transfusion & [facility]ALE Questions: Date: 10/27/18 Time: 19:56 Psycho/Social Medical History Hx Depression No Hx Anxiety No Hx Behavior Disorder No Hx Alcohol Use Yes: 1-2 beers daily Hx Substance Use No Other Medical History Hx Blood Disorders No Hx Anemia No Hx Cancer No Hx Drug Resistant Organism No Wound/Pressure Injury Present on Arrival No /Admission Query Text:If yes, chart assessment in Shift/Clinical Findings Central Line/PICC/VAD Present on Arrival No /Admission Antibiotics within last 7 days? No Methicillin Resistant Staphylococcus aureus Screening Active MRSA No Risk for Readmission Number of Risk Factors 5 At Risk for Readmission Patient is At Risk For Readmission Patient is eligible for Call Back Y Paternal Family History: Cancer - Patient does not know which cancer, COPD Maternal Family History: No pertinent history - Social History Lives: Spouse/ Significant Other Smoking Status: Former smoker Tobacco Use: - - Ex-Smoker Alcohol: Heavy - in the past, at present 1-2 beers Review of Systems Constitutional:: Reports: Weakness, Fatigue, Weight loss, Appetite change - Anorexia. Denies: Fever, Sweats, Chills Cardiovascular:: Reports: Dyspnea on exertion. Denies: Chest pain, Palpitations, Orthopnea, PND, Shortness of breath Respiratory: Reports: Cough, Hemoptysis, Shortness of breath upon exertion. Denies: Shortness of Breath, Wheezing Gastrointestinal:: Reports: Dysphagia. Denies: Abdominal pain, Nausea, Vomiting, Diarrhea, Constipation, Hematochezia Genitourinary: Denies: Dysuria, Hematuria, 15, Flank pain Musculoskeletal:: Denies: Back pain, Myalgia, Arthralgia Skin: Denies: Rash, Skin Changes, Wounds Neurological:: Reports: Paralysis - Right face. Denies: Headache, Dizziness, Visual changes, Tinnitus, Hearing loss Psychiatric: Denies: Anxiety, Depression, Homicidal Ideations, Suicidal Ideations Vital Signs Height 5 ft 8 in Weight: 65.5 kg Weight in Pounds 144.4 lbs Pulse Ox 97 Temperature 98.2 F Pulse Rate 67 Respiratory Rate 16 Blood Pressure [BP] 114/68 Blood Pressure 118/67 Blood Pressure Position [BP] Semi-Fowlers Blood Pressure Position Semi-Fowlers - Physical Exam General: Alert, Oriented x3, No apparent distress, - - Cachectic, ECOG 2-3 Laboratory Data: Laboratory Tests 10/30/18 10/30/18 Range/Units 06:28 06:28 WBC 11.9 H (4.4-11.0) K/mm3 RBC 5.10 (4.6-6.2) M/mm3 Hgb 13.8 (13.0-16.5) g/dl Hct 42.9 (40-54) % MCV 84.1 (80-94) fL MCH 27.1 (27.0-32.0) pg MCHC 32.2 (32-36) g/gl RDW 15.2 H (11.6-14.6) % RDW Differential 46.6 H (35.1-43.9) fl Plt Count 334 (150-450) K/mm3 MPV 9.0 (6.2-12.0) fl Immature Gran % (Auto) 0.300 (0.0-0.9) % Neut % (Auto) 73.9 H (47-70) % Lymph % (Auto) 17.1 L (19-41) % [place] % (Auto) 8.6 (0-10) % Eos % (Auto) 0.0 (0-5) % Baso % (Auto) 0.1 (0-1) % Absolute Neuts (auto) 8.8 H (2.0-7.7) X10^3/uL Absolute Lymphs (auto) 2.04 (0.83-4.51) X10^3/ul Total Counted Not Reportable Sodium 136 (136-145) mmol/L Potassium 4.1 (3.5-5.1) mmol/L Chloride 99 (98-107) mmol/L Carbon Dioxide 29.0 (21.0-32.0) mmol/L Anion Gap 8 (5-15) BUN 12 (7-18) mg/dL Creatinine 0.61 L (0.70-1.30) mg/dL Estim Creat Clear Calc 57.31 ml/min Est GFR (MDRD) Af Amer 164 (>60) mL/min Est GFR (MDRD) Non-Af 136 (>60) mL/min BUN/Creatinine Ratio 19.6 (10-20) RATIO Glucose 85 (74-106) mg/dL Calcium 9.7 (8.5-10.1) mg/dL Diagnostic Data: Diagnostic Data Head CTA 10/27/18 15:58 IMPRESSION: 1. No carotid artery dissection or thrombus. 2. Mild bilateral carotid bulb atherosclerosis without hemodynamically significant stenosis. 3. SUSPICIOUS ADENOPATHY of the mediastinum, incompletely imaged. 4. ESOPHAGEAL WALL THICKENING SUSPICIOUS FOR NEOPLASM. 5. Degenerative changes of the cervical spine. Electronically Signed: Guero Noe MD at 16:46 EDT , Service support , ADDENDUM: 10/28/18 05 IMPRESSION: Patient is cleared for MRI. Electronically Signed: Richard Smith MD at 5:14 EDT , Service support , ADDENDUM: 10/28/18 0528 IMPRESSION: 1. No carotid artery dissection or thrombus. 2. Mild bilateral carotid bulb atherosclerosis without hemodynamically significant stenosis. 3. SUSPICIOUS ADENOPATHY of the mediastinum, incompletely imaged. 4. ESOPHAGEAL WALL THICKENING SUSPICIOUS FOR NEOPLASM. 5. Degenerative changes of the cervical spine. Electronically Signed: Guero Noe MD at 16:46 EDT , Service support , ADDENDUM: 10/28/18 0528 IMPRESSION: Patient is cleared for MRI. Electronically Signed: Richard Smith MD at 5:14 EDT , Service support , Neck CTA 10/27/18 15:58 IMPRESSION: 1. No carotid artery dissection or thrombus. 2. Mild bilateral carotid bulb atherosclerosis without hemodynamically significant stenosis. 3. SUSPICIOUS ADENOPATHY of the mediastinum, incompletely imaged. 4. ESOPHAGEAL WALL THICKENING SUSPICIOUS FOR NEOPLASM. 5. Degenerative changes of the cervical spine. Electronically Signed: Guero Noe MD at 16:46 EDT , Service support , ADDENDUM: 10/28/18 0522 IMPRESSION: Patient is cleared for MRI. Electronically Signed: Richard Smith MD at 5:14 EDT , Service support , Brain CT 10/27/18 15:59 IMPRESSION: 1. No acute intracranial hemorrhage or mass effect. 2. Central parenchymal volume loss. White matter changes that are nonspecific but most commonly associated with chronic small vessel ischemic disease. 3. Chronic sinusitis. N.B. : The above information has been verbally conveyed by Guero Noe MD to Gray Lam MD, on 10/27/2018 16:31:44 (ET). Electronically Signed: Guero Noe MD at 16:33 EDT , Service support , ADDENDUM: 10/27/18 1640 IMPRESSION: 1. No acute intracranial hemorrhage or mass effect. 2. Central parenchymal volume loss. White matter changes that are nonspecific but most commonly associated with chronic small vessel ischemic disease. 3. Chronic sinusitis. N.B. : The above information has been verbally conveyed by Guero Noe MD to Gray Lam MD, on 10/27/2018 16:31:44 (ET). Electronically Signed: Guero Noe MD at 16:33 EDT , Service support , Chest X-Ray 10/27/18 15:59 IMPRESSION: Mass density at the left lung base with potential cavitation. Chest CT recommended. Electronically Signed: Guero Noe MD at 16:35 EDT , Service support , Brain MRI 10/28/18 09:00 IMPRESSION: 1. Senescent changes with no evidence of acute intracranial bleed, mass or ischemia. 2. Right inferior skull base appeared muscular infiltrating lesion worrisome for underlying sarcoma with metastatic disease not excluded. There is likely infiltration of the right facial nerve and stylomastoid foramen infiltration. Recommend dedicated skull base imaging with thin slice postcontrast SPGR T1 with diffusion imaging for further assessment and analysis. Recommend ENT consultation for definitive tissue assessment. Electronically Signed: Kingsley Penn DO at 16:00 EDT , Service support , Chest CT 10/29/18 05:55 IMPRESSION: 1. 5 cm in length suspicious mural lesion of the upper thoracic esophagus. 2. Several left lower lobe lesions measuring approximately 10.4 cm and 1.6 cm respectively, compatible with malignant tumor. 3. 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 4. Probable hepatic metastases. 5. Cholelithiasis. Individualized dose optimization techniques were used for this CT. at 6424 Reported and signed by: Rod Argueta MD Electronically Signed: Rod Argueta, at 7:23 EDT Tel , Service support , Bone Scan Nuclear Medicine 10/29/18 16:02 IMPRESSION: 1. The increase in radiopharmaceutical concentration visualized in the right proximal-mid humeral diaphysis is of uncertain etiology and may represent previous trauma-fracture. Plain film radiography correlation is recommended. 2. Degenerative arthritis appears expressed in the cervical spine and sacrum, bilateral shoulders, right hand. 3. There is no definitive typical scintigraphic evidence of diffuse axial skeletal metastatic disease on the current examination. Prominent soft tissue-cutaneous contamination artifact is visualized. Electronically Signed: Alexis Castle DO at 13:50 EDT Tel , Service support , ADDENDUM: 10/30/18 1457 ADDENDUM by Annia Romero MD on 10/30/18 at 1450 ADDENDUM There is increased uptake on the right side in the occipital bone and in the right mastoid bone consistent with metastatic lesion. Abdomen/Pelvis CT 10/30/18 06:00 IMPRESSION: Multiple liver lesions the largest measures 3.7 cm have nonspecific appearance, for which further evaluation by MRI can be helpful to exclude metastatic lesions. Cholelithiasis. 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 Patient has a terminal stage IV disease, is cachectic with a poor performance status and systemic chemotherapy would be more likely detrimental and I advise comfort measures only on the home hospice program. Plan: Patient was seen with his who was at his bedside, impression and plan discussed. Patient wishes to go home as soon as possible on the home hospice program. Biopsy of metastatic lesion (liver or lung) is of academic interest only and to be canceled as per patient request. Following the discussion at the bedside and with patient's permission I share the same information with the patient's daughter on the phone. Medications: Prescriptions This Visit Medication Instructions Recorded Aspirin 325 mg PO DAILY@0800 10/27/18 Atorvastatin Calcium 40 mg PO QHS 10/27/18 Flaxseed Oil [Flax Oil] 1,000 mg PO DAILY 10/27/18 Metoprolol Tartrate 50 mg PO BID 10/27/18 Sour Baez Extract [Tart Baez 1,000 mg PO QHS 10/27/18 Extract] Turmeric 400 mg PO DAILY 10/27/18 Vitamin B Complex [Balance B-50] 1 each PO DAILY 10/27/18 Medications Added to Medication List This Visit Category Date Time Status Adenosine [Adenocard] Med 10/30/18 09:35 Active 6 mg IV PRN PRN Metoprolol Tartrate [Lopressor (Beta Geno)] Med 10/30/18 10:30 Active 50 mg PO BID predniSONE tablet Med 10/30/18 08:00 Active 60 mg PO DAILY@0800 Primary Care Provider: Donald Cohen MD Referring Provider: Bakari Carbajal MD
--- NOTE | 2018-10-30 19:51 | PN_ITS ---
Patient Problems: Active and Suspected Problems Left lung mass (Acute) Recent diagnosis Esophageal mass (Acute) Subjective: Patient was seen and examined. Had EGD today that showed near circumferential mass suggestive of malignancy. Objective: Physical exam: General: Alert, Oriented x3, Cooperative, No apparent distress, comfortable, on room air HEENT: Atraumatic, PERRLA, EOMI, Normocephalic Oral: Moist Mucosa Neck: Supple Lungs: Clear to auscultation, Normal air movement Cardiovascular: Regular rate, Regular Rhythm, Normal S1, Normal S2, No murmurs Abdomen: Bowel Sounds Present, Soft, Non Tender, Non-Distended, No Hepato- splenomegaly Extremities: No edema Skin: No rashes, No breakdown Musculoskeletal: No Tenderness to Palpation of Joints or Extremities Lymphatic: No Cervical, Supraclavicular, or Inguinal Adenopathy Neurological: Facial Droop - Right facial droop, LMN, improved Psych/Mental Status: Normal Affect, Appropriate Vitals/I&O's: Vital Signs Temp Pulse Resp BP Pulse Ox 97.4 F L 80 18 122/67 H 98 10/30/18 18:28 10/30/18 18:49 10/30/18 18:28 10/30/18 18:28 10/30/18 18:28 Oxygen Flow Rate (L/min) 1 Oxygen Delivery Method Room Air Weight: 65.5 kg Body Mass Index (BMI) 21.9 Intake and Output for Last 24 Hours 10/28/18 10/29/18 10/30/18 23:59 23:59 23:59 Intake Total 1478 / 1478 940 / 940 560 / 560 Output Total 1135 / 1135 1200 / 1200 1400 / 1400 Balance 343 / 343 -260 / -260 -840 / -840 Laboratory Results 10/30/18 06:28: WBC 11.9 H, RBC 5.10, Hgb 13.8, Hct 42.9, MCV 84.1, MCH 27.1, MCHC 32.2, RDW 15.2 H, RDW Differential 46.6 H, Plt Count 334, MPV 9.0, Immature Gran % (Auto) 0.300, Neut % (Auto) 73.9 H, Lymph % (Auto) 17.1 L, [place] % (Auto) 8.6, Eos % (Auto) 0.0, Baso % (Auto) 0.1, Absolute Neuts (auto) 8.8 H, Absolute Lymphs (auto) 2.04, Total Counted Not Reportable 10/30/18 06:28: Sodium 136, Potassium 4.1, Chloride 99, Carbon Dioxide 29.0, Anion Gap 8, BUN 12, Creatinine 0.61 L, Estim Creat Clear Calc 57.31, Est GFR (MDRD) Af Amer 164, Est GFR (MDRD) Non-Af 136, BUN/Creatinine Ratio 19.6, Glucose 85, Calcium 9.7 Current Medications Adenosine (Adenocard) 6 mg IV PRN PRN PRN Reason: heart rate Al Hydroxide/Mg Hydroxide (Mylanta Ii) 30 ml PO Q6H PRN PRN PRN Reason: Gastric burning Aspirin (Aspirin) 325 mg PO DAILY@0800 [facility] Last Admin: 10/30/18 09:39 Dose: 325 mg Atorvastatin Calcium (Lipitor) 40 mg PO QHS [facility] Last Admin: 10/29/18 21:46 Dose: 40 mg Metoprolol Tartrate (Lopressor (Beta Geno)) 50 mg PO BID [facility] Last Admin: 10/30/18 10:43 Dose: 50 mg Multivitamins (Allbee W/C Caplet, Thera B Comp/C) 1 capsule PO DAILYCM [facility] Last Admin: 10/30/18 09:42 Dose: 1 capsule Nutritional Formula (Lactose Free) (Glucerna Shake) 120 ml PO 4X/DAY [facility] Last Admin: 10/30/18 17:57 Dose: Not Given Ondansetron HCl (Zofran) 4 mg IV Q8H PRN PRN PRN Reason: NAUSEA Prednisone () 60 mg PO DAILY@0800 [facility]; Taper Stop: 11/10/18 07:59 Last Admin: 10/30/18 09:40 Dose: 60 mg Medical Necessity - Tobacco Use Smoking Status: Former smoker Tobacco Use: - - Ex-Smoker Assessment/Plan All Active Problems Facial palsy (Acute) Lung mass (Acute) Weight loss, non-intentional (Acute) Bone lesion (Acute) Lesion of liver (Acute) Castillo's palsy (Acute) Left lung mass (Acute) Esophageal mass (Acute) 78-year-old male with multiple comorbidities, history of nicotine use disorder, [id number], recent weight loss, newly diagnosed lung mass admitted with right sided facial droop. 1. Episode of SVT, transient, resolved without treatment 2. Right-sided facial droop secondary to right facial nerve malignant infiltration at the stylomastoid foramen Secondary to esophageal CA, on prednisone taper 3. 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 Hemoptysis secondary to metastatic lung mass, off anticoagulants, on aspirin for history of CAD, Hemoptysis appears to be improving, will continue to monitor. 5. Prediabetes, HbA1c 6.1, blood sugars are controlled, will discontinue Accu- Cheks 6. Hypertension, controlled, on metoprolol 7. CAD status post stents, on aspirin, beta-geno, statin 8. Hyperlipidemia, statin 9. DVT prophylaxis - SCDs, early ambulation Code Visit Inpatient E&M: 17305 Subs Hosp L2
[2018-10-30] MEDS: Atorvastatin Calcium 40 MG Tablet PO (21:22)
[2018-10-30 22:07] LABS: Angiotensin Convert Enzyme 26 U/L (14-82)
[2018-10-31] VITALS (8 sets, daily range): BP systolic 117–143; BP diastolic 68–77; PULSE 52–88; RESP 14–16; TEMP 36.4; O2SAT 93–98
[2018-10-31 06:16] LABS: International Normalized Ratio 1.2; Prothrombin Time (Protime)PT. 15.1 SECONDS (11.7-14.9)
[2018-10-31 06:17] LABS: Partial Thromboplast Time 31.4 Seconds (24.1-36.2)
[2018-10-31] MEDS: Vitamin B Comp W-C Capsule 1 CAP PO (07:33)
[2018-10-31] MEDS: Aspirin 325 MG Tablet PO (07:34)
[2018-10-31] MEDS: predniSONE 20 MG Tablet 50 MG PO (07:34)
--- NOTE | 2018-10-31 08:23 | DCINST_ITS ---
- Discharge Diagnoses Current Active Problems: Current Active and Chronic Problems Hypertension (Chronic) Borderline type 2 diabetes mellitus (Chronic) Dyslipidemia (Chronic) Left lung mass (Acute) Recent diagnosis Coronary artery disease (Chronic) Esophageal mass (Acute) Reason(s) for Visit for Discharge Instructions: Right sided facial droop You will use the following diet at home:: Regular Your food should be the consistency of: Regular Your liquids should be the consistency of: Regular/Thin Discharge Activity: Return to Normal Activity Additional Instructions: Continue to follow-up with your primary doctor within 1-2 weeks. Allergies/Adverse Reactions: Allergies lorazepam [From Ativan] Allergy (Verified 10/27/18 15:54) Other CAUSED A HEART ATTACK Penicillins [PCN] Allergy (Verified 10/27/18 15:54) Unknown Medications to take at Discharge Aspirin 325 mg PO DAILY@0800 10/27/18 Atorvastatin Calcium 40 mg PO QHS 10/27/18 Flaxseed Oil [Flax Oil] 1,000 mg PO DAILY 10/27/18 Metoprolol Tartrate 50 mg PO BID 10/27/18 Sour Baez Extract [Tart Baez Extract] 1,000 mg PO QHS 10/27/18 Turmeric 400 mg PO DAILY 10/27/18 Vitamin B Complex [Balance B-50] 1 each PO DAILY 10/27/18 Prednisone 10 mg PO UD #20 tablet 10/31/18 The following prescriptions were given: Prednisone 10 mg PO UD #20 tablet Primary Care Physician: Donald Cohen MD [Primary Care Provider] - Please follow up with your Primary Care Physician in: within 1-2 weeks Test Results: Test results from this visit will be discussed in further detail at your follow- up appointment, if applicable. Proposed Discharge Date: 10/31/18
--- NOTE | 2018-10-31 09:16 | DS.PCM_ITS ---
Discharge Date and Diagnosis Date of Admission: 10/27/18 Date of Discharge: 10/31/18 - Primary Discharge Diagnosis Active and Suspected Problems Left lung mass (Acute) Recent diagnosis Esophageal mass (Acute), metastatic Right facial nerve infiltration/Castillo's palsy Prediabetes SVT - Secondary Discharge Diagnosis Chronic Problems Hypertension (Chronic) Borderline type 2 diabetes mellitus (Chronic) Dyslipidemia (Chronic) Coronary artery disease (Chronic) Hospital Course and Treatment Imaging Results: Clinical Impression(s) from Imaging Studies Head CTA 10/27/18 15:58 IMPRESSION: 1. No carotid artery dissection or thrombus. 2. Mild bilateral carotid bulb atherosclerosis without hemodynamically significant stenosis. 3. SUSPICIOUS ADENOPATHY of the mediastinum, incompletely imaged. 4. ESOPHAGEAL WALL THICKENING SUSPICIOUS FOR NEOPLASM. 5. Degenerative changes of the cervical spine. Electronically Signed: Guero Noe MD at 16:46 EDT , Service support , ADDENDUM: 10/28/18521 IMPRESSION: Patient is cleared for MRI. Electronically Signed: Richard Smith MD at 5:14 EDT , Service support , ADDENDUM: 10/28/18527 IMPRESSION: 1. No carotid artery dissection or thrombus. 2. Mild bilateral carotid bulb atherosclerosis without hemodynamically significant stenosis. 3. SUSPICIOUS ADENOPATHY of the mediastinum, incompletely imaged. 4. ESOPHAGEAL WALL THICKENING SUSPICIOUS FOR NEOPLASM. 5. Degenerative changes of the cervical spine. Electronically Signed: Guero Noe MD at 16:46 EDT , Service support , ADDENDUM: 10/28/18527 IMPRESSION: Patient is cleared for MRI. Electronically Signed: Richard Smith MD at 5:14 EDT , Service support , Neck CTA 10/27/18 15:58 IMPRESSION: 1. No carotid artery dissection or thrombus. 2. Mild bilateral carotid bulb atherosclerosis without hemodynamically significant stenosis. 3. SUSPICIOUS ADENOPATHY of the mediastinum, incompletely imaged. 4. ESOPHAGEAL WALL THICKENING SUSPICIOUS FOR NEOPLASM. 5. Degenerative changes of the cervical spine. Electronically Signed: Guero Noe MD at 16:46 EDT , Service support , ADDENDUM: 10/28/18 0522 IMPRESSION: Patient is cleared for MRI. Electronically Signed: Richard Smith MD at 5:14 EDT , Service support , Brain CT 10/27/18 15:59 IMPRESSION: 1. No acute intracranial hemorrhage or mass effect. 2. Central parenchymal volume loss. White matter changes that are nonspecific but most commonly associated with chronic small vessel ischemic disease. 3. Chronic sinusitis. N.B. : The above information has been verbally conveyed by Guero Noe MD to Gray Lam MD, on 10/27/2018 16:31:44 (ET). Electronically Signed: Guero Noe MD at 16:33 EDT , Service support , ADDENDUM: 10/27/18 1640 IMPRESSION: 1. No acute intracranial hemorrhage or mass effect. 2. Central parenchymal volume loss. White matter changes that are nonspecific but most commonly associated with chronic small vessel ischemic disease. 3. Chronic sinusitis. N.B. : The above information has been verbally conveyed by Guero Noe MD to Gray Lam MD, on 10/27/2018 16:31:44 (ET). Electronically Signed: Guero Noe MD at 16:33 EDT , Service support , Chest X-Ray 10/27/18 15:59 IMPRESSION: Mass density at the left lung base with potential cavitation. Chest CT recommended. Electronically Signed: Guero Noe MD at 16:35 EDT , Service support , Brain MRI 10/28/18 09:00 IMPRESSION: 1. Senescent changes with no evidence of acute intracranial bleed, mass or ischemia. 2. Right inferior skull base appeared muscular infiltrating lesion worrisome for underlying sarcoma with metastatic disease not excluded. There is likely infiltration of the right facial nerve and stylomastoid foramen infiltration. Recommend dedicated skull base imaging with thin slice postcontrast SPGR T1 with diffusion imaging for further assessment and analysis. Recommend ENT consultation for definitive tissue assessment. Electronically Signed: Kingsley Penn DO at 16:00 EDT , Service support , Chest CT 10/29/18 05:55 IMPRESSION: 1. 5 cm in length suspicious mural lesion of the upper thoracic esophagus. 2. Several left lower lobe lesions measuring approximately 10.4 cm and 1.6 cm respectively, compatible with malignant tumor. 3. 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 4. Probable hepatic metastases. 5. Cholelithiasis. Individualized dose optimization techniques were used for this CT. at 0724 Reported and signed by: Rod Argueta MD Electronically Signed: Rod Argueta, at 7:23 EDT Tel , Service support , Bone Scan Nuclear Medicine 10/29/18 16:02 IMPRESSION: 1. The increase in radiopharmaceutical concentration visualized in the right proximal-mid humeral diaphysis is of uncertain etiology and may represent previous trauma-fracture. Plain film radiography correlation is recommended. 2. Degenerative arthritis appears expressed in the cervical spine and sacrum, bilateral shoulders, right hand. 3. There is no definitive typical scintigraphic evidence of diffuse axial skeletal metastatic disease on the current examination. Prominent soft tissue-cutaneous contamination artifact is visualized. Electronically Signed: Alexis Castle DO at 13:50 EDT Tel , Service support , ADDENDUM: 10/30/18 1457 Abdomen/Pelvis CT 10/30/18 06:00 IMPRESSION: Multiple liver lesions the largest measures 3.7 cm have nonspecific appearance, for which further evaluation by MRI can be helpful to exclude metastatic lesions. Cholelithiasis. Electronically Signed: Annia Romero, at 11:18 EDT Tel , Service support , Oncology Pulmonology General surgery Operations: None Procedures: EGD Summary of Care Provided: 78-year-old male with history of nicotine use disorder, 40-ppd, recent weight loss, newly diagnosed lung mass admitted with right sided facial droop. His had noticed a right sided facial droop on the morning of the admission. Patient was being followed up for chronic cough since July 2018. CT of the head showed no acute intracranial process. MRI of the head as well as MRA of the head and neck showed right inferior skull base infiltrative lesion with infiltration of the right facial nerve and stylomastoid foramen infiltration. Patient was initially started on acyclovir and prednisone taper. Acyclovir was discontinued. Patient had hemoptysis in the hospital stay. Patient had CT of the chest that confirmed centimeters in length suspicious mural lesion of the upper thoracic esophagus with several left lower lobe lesions and metastatic lymphadenopathy as well as hepatic metastasis. General surgery was consulted. Patient underwent EGD that was suggestive of esophageal CA. Oncology was consulted. Abdominopelvic CT showed multiple liver lesions with the largest measuring 3.7 cm. Bone scan was positive for increased uptake on the right side in the occipital bone in the right mastoid bone consistent with metastatic lesion. He had an episode of SVT that was transient, and resolved without being treated. Oncology discussed with the family; family opted to be discharged home with hospice. They later changed her mind and just wanted to be discharged home. Subjective: Patient was seen and examined on the day of discharge. He denied any fever or chills. Denies any pain. Still has hemoptysis. Objective: Physical exam: General: Alert, Oriented x3, Cooperative, No apparent distress, comfortable, on room air HEENT: Atraumatic, PERRLA, EOMI, Normocephalic Oral: Moist Mucosa Neck: Supple Lungs: Clear to auscultation, Normal air movement Cardiovascular: Regular rate, Regular Rhythm, Normal S1, Normal S2, No murmurs Abdomen: Bowel Sounds Present, Soft, Non Tender, Non-Distended, No Hepato- splenomegaly Extremities: No edema Skin: No rashes, No breakdown Musculoskeletal: No Tenderness to Palpation of Joints or Extremities Lymphatic: No Cervical, Supraclavicular, or Inguinal Adenopathy Neurological: Facial Droop - Right facial droop, LMN, improved Psych/Mental Status: Normal Affect, Appropriate - Physical Exam Vital Signs Temp Pulse Resp BP Pulse Ox 97.5 F L 52 L 14 143/77 H 94 10/31/18 05:37 10/31/18 06:27 10/31/18 05:37 10/31/18 05:37 10/31/18 07:27 Oxygen Flow Rate (L/min) 1 Oxygen Delivery Method Room Air Weight: 65.5 kg Body Mass Index (BMI) 21.9 Intake and Output for Last 24 Hours 10/29/18 10/30/18 10/31/18 23:59 23:59 23:59 Intake Total 940 / 940 620 / 620 60 / 60 Output Total 1200 / 1200 1925 / 1925 225 / 225 Balance -260 / -260 -1305 / -1305 -165 / -165 Laboratory Tests Past 24 Hrs 10/31/18 05:30 PT 15.1 H INR 1.2 APTT 31.4 Discharge Diet: Low fat/ Low Cholesterol, 2000 mg Sodium Diet Discharge Activity: Return to Normal Activity Home Medications: Medications to take at Discharge Aspirin 325 mg PO DAILY@0800 10/27/18 Atorvastatin Calcium 40 mg PO QHS 10/27/18 Flaxseed Oil [Flax Oil] 1,000 mg PO DAILY 10/27/18 Metoprolol Tartrate 50 mg PO BID 10/27/18 Sour Baez Extract [Tart Baez Extract] 1,000 mg PO QHS 10/27/18 Turmeric 400 mg PO DAILY 10/27/18 Vitamin B Complex [Balance B-50] 1 each PO DAILY 10/27/18 Prednisone 10 mg PO UD #20 tablet 10/31/18 Following Prescrptions Were Given to Patient: Prednisone 10 mg PO UD #20 tablet Primary Care Physician: Donald Cohen MD [Primary Care Provider] - Please follow up with your Primary Care Physician in: within 1-2 weeks Disposition: Home Minutes spent on discharge:: 50 Patient Condition:: Stable Medical Necessity - Tobacco Use Smoking Status: Former smoker Tobacco Use: Non-smoker, - - Ex-Smoker Meaningful Use Info Meaningful Use Diagnoses (Choose all that apply): None applicable Code Visit Inpatient E&M: 03966 Disch Hosp
[2018-10-31] MEDS: Metoprolol Tartrate 50 MG Tablet PO (09:23)
[2018-10-31 11:27] LABS: Lyme Scn Total Ab w/Rflx <0.91 ISR (0.00-0.90)
== END 2018-10-31 11:07 | disposition home or self-care (01) | DRG 55 ==
LOC: ED 17:21 → PCU 17:44
PROVIDERS: Psychiatry & Neurology Neurology; Surgery; Admitting Provider Internal Medicine; Emergency Provider Emergency Medicine; Family Provider Family Medicine; PCP Family Medicine; Referring Provider Internal Medicine; Visit Provider Internal Medicine
PROC: 0DJ08ZZ Inspection of Upper Intestinal Tract, Via Natural or Artificial Opening Endoscopic (ICD-10-PCS; CPT 43235; principal; 2018-10-30 06:55)
DX: C79.49 Secondary malignant neoplasm of other parts of nervous system (principal); C15.3 Malignant neoplasm of upper third of esophagus; C78.02 Secondary malignant neoplasm of left lung; C78.7 Secondary malignant neoplasm of liver and intrahepatic bile duct; R64 Cachexia; C77.1 Secondary and unspecified malignant neoplasm of intrathoracic lymph nodes; C79.51 Secondary malignant neoplasm of bone; I47.1 Supraventricular tachycardia; R04.2 Hemoptysis; G58.8 Other specified mononeuropathies; K22.2 Esophageal obstruction; R73.03 Prediabetes; I10 Essential (primary) hypertension; I25.10 Atherosclerotic heart disease of native coronary artery without angina pectoris; K44.9 Diaphragmatic hernia without obstruction or gangrene; E78.5 Hyperlipidemia, unspecified; Z79.82 Long term (current) use of aspirin; Z87.891 Personal history of nicotine dependence; Z95.5 Presence of coronary angioplasty implant and graft; Z68.21 Body mass index [BMI] 21.0-21.9, adult
CPT/HCPCS: 36415; 70450; 70496; 70498; 70553; 71045; 71260; 74177; 78306; 80048; 82164; 82962; 83036; 84484; 85025; 85610; 85730; 86140; 86618; 86703; 88305; 88341; 88342; 92610; 93005; 97161; 97166; 97530; 97802; 99285; A9575; J7030; J7040; Q9967; A4216